=== PATIENT | female | born 1965 | race Caucasian/White ===

== ENCOUNTER 2017-04-06 13:37 | Emergency (ER) | payer OTHER ==
[~2017-04-06] VITALS: Ht 172.7 cm; Wt 63.5 kg
[~2017-04-06 13:37] MED LIST: ASPIR 8181 MG PO; ASPIRIN EC81 MG PO; AUGMENTIN 875-1 EACH PO; CIPROFLOXACIN500 MG PO; CLOPIDOGREL75 MG PO; COMBIVENT RESPIM4 GM; FLOVENT DISKU100 MCG IH; FLOVENT HFA12 GM; GLUCOPHAGE500 MG PO; HYDROCHLOROTHIA25 MG PO; IPRAT-ALBUT 0.5-3 ML INH; ISOSORBIDE MONO30 MG PO; LIPITOR40 MG PO; LOPRESSOR50 MG PO; MIRTAZAPINE15 MG PO; NITROSTAT0.4 MG SL; NORCO 5-325 TA1 EACH PO; OMEPRAZOLE20 MG PO; PREDNISONE20 MG PO; PROZAC10 MG PO; ULTRAM50 MG PO; VENTOLIN HFA18 GM INH; ZESTRIL40 MG PO; [UNRECOGNIZED DRUG - REMARK]
[2017-04-06] MEDS ORDERED: NORCO 5-325 TA1 EACH PO (14:00)
[2017-04-06] MEDS ORDERED: METHYLPREDNISOLO4 M1 PO (14:00)
[2017-04-06] MEDS ORDERED: ROBAXIN-750750 MG PO (14:00)
== END 2017-04-06 14:55 | disposition home or self-care (01) ==
LOC: ED 13:37
DX: M54.5 Low back pain (principal); E11.9 Type 2 diabetes mellitus without complications; K21.9 Gastro-esophageal reflux disease without esophagitis; I25.10 Atherosclerotic heart disease of native coronary artery without angina pectoris; J44.9 Chronic obstructive pulmonary disease, unspecified; I10 Essential (primary) hypertension; F32.9 Major depressive disorder, single episode, unspecified; F17.200 Nicotine dependence, unspecified, uncomplicated; Z88.8 Allergy status to other drugs, medicaments and biological substances; Z88.7 Allergy status to serum and vaccine; Z86.73 Personal history of transient ischemic attack (TIA), and cerebral infarction without residual deficits; Z79.899 Other long term (current) drug therapy; Z79.84 Long term (current) use of oral hypoglycemic drugs; Z79.82 Long term (current) use of aspirin
CPT/HCPCS: 96372; 99283; J1100

== ENCOUNTER 2017-04-23 19:02 | Emergency (ER) | payer OTHER ==
[~2017-04-23] VITALS: Ht 172.7 cm; Wt 65.8 kg
[~2017-04-23 19:02] MED LIST changes: +METHYLPREDNISOLO4 M1 PO; +ROBAXIN-750750 MG PO
[2017-04-23] MEDS ORDERED: TRAMADOL HCL50 MG PO (19:30)
== END 2017-04-23 19:54 | disposition home or self-care (01) ==
LOC: ED 19:02
DX: M79.604 Pain in right leg (principal); G89.29 Other chronic pain; G35 Multiple sclerosis; E11.9 Type 2 diabetes mellitus without complications; K21.9 Gastro-esophageal reflux disease without esophagitis; I25.10 Atherosclerotic heart disease of native coronary artery without angina pectoris; J44.9 Chronic obstructive pulmonary disease, unspecified; I10 Essential (primary) hypertension; F32.9 Major depressive disorder, single episode, unspecified; Z86.73 Personal history of transient ischemic attack (TIA), and cerebral infarction without residual deficits; Z87.891 Personal history of nicotine dependence; Z88.8 Allergy status to other drugs, medicaments and biological substances; Z88.7 Allergy status to serum and vaccine; Z79.899 Other long term (current) drug therapy; Z79.84 Long term (current) use of oral hypoglycemic drugs; Z79.82 Long term (current) use of aspirin
CPT/HCPCS: 99283

== ENCOUNTER 2017-07-05 09:00 | Emergency (ER) | payer OTHER ==
[~2017-07-05] VITALS: Ht 172.7 cm; Wt 63.5 kg
[~2017-07-05 09:00] MED LIST changes: +TRAMADOL HCL50 MG PO
[2017-07-05] MEDS ORDERED: METOPROLOL SUCC50 MG PO (09:49)
[2017-07-05] MEDS ORDERED: DILTIAZEM ER180 M2 PO (09:50)
[2017-07-05] MEDS ORDERED: ALPRAZOLAM0.5 MG PO (10:05)
--- NOTE | 2017-07-05 17:21 | EKG ---
[facility] [address] [facility] [place], [place] [address] Signed Sinus rhythm with fusion complexes Otherwise normal ECG No previous ECGs available Confirmed by HEIDI DAVILA MD ([id number]) on 07/05/2017 5:21:01 PM Electronically Signed By: HEIDI DAVILA MD 07/05/17 1721 PATIENT NAME: DESTINEE DARBY Electrocardiogram DATE OF : 65 PHYSICIAN: HEIDI DAVILA MD REPORT #: [id number] REPORT IS CONFIDENTIAL AND NOT TO BE RELEASED WITHOUT AUTHORIZATION
== END 2017-07-05 10:09 | disposition home or self-care (01) ==
LOC: ED 09:00
DX: R07.9 Chest pain, unspecified (principal); F41.9 Anxiety disorder, unspecified; E11.9 Type 2 diabetes mellitus without complications; K21.9 Gastro-esophageal reflux disease without esophagitis; J44.9 Chronic obstructive pulmonary disease, unspecified; I25.10 Atherosclerotic heart disease of native coronary artery without angina pectoris; I10 Essential (primary) hypertension; F32.9 Major depressive disorder, single episode, unspecified; Z87.891 Personal history of nicotine dependence; Z95.5 Presence of coronary angioplasty implant and graft; Z88.8 Allergy status to other drugs, medicaments and biological substances; Z79.899 Other long term (current) drug therapy; Z79.82 Long term (current) use of aspirin; Z79.84 Long term (current) use of oral hypoglycemic drugs
CPT/HCPCS: 71010; 80053; 84484; 85025; 93005; 93010; 99284; G0480

== ENCOUNTER 2017-09-18 07:21 | Emergency (ER) | payer OTHER ==
[~2017-09-18] VITALS: Ht 172.7 cm; Wt 63.5 kg
[~2017-09-18 07:21] MED LIST changes: +ALPRAZOLAM0.5 MG PO; +DILTIAZEM ER180 M2 PO; +METOPROLOL SUCC50 MG PO
[2017-09-18] MEDS ORDERED: NAPROSYN500 MG PO (10:02)
[2017-09-18] MEDS ORDERED: PROMETH-CODEIN 65 ML PO (10:02)
--- NOTE | 2017-09-18 23:50 | EKG ---
[facility] [address] [facility] [place] [address] Signed Sinus rhythm with occasional premature ventricular complexes Nonspecific ST and T wave abnormality Abnormal ECG When compared with ECG of 05-JUL-2017 09:10, fusion complexes are no longer present premature ventricular complexes are now present Non-specific change in ST segment in Lateral leads Nonspecific T wave abnormality now evident in Lateral leads Confirmed by TITA TILLMAN MD ([id number]) on 09/18/2017 11:49:58 PM Electronically Signed By: TITA TILLMAN MD 09/18/17 2350 PATIENT NAME: DESTINEE DARBY Electrocardiogram DATE OF : 65 PHYSICIAN: TITA TILLMAN MD REPORT #: [id number] REPORT IS CONFIDENTIAL AND NOT TO BE RELEASED WITHOUT AUTHORIZATION
== END 2017-09-18 10:33 | disposition home or self-care (01) ==
LOC: ED 07:21
DX: J10.1 Influenza due to other identified influenza virus with other respiratory manifestations (principal); J20.9 Acute bronchitis, unspecified; E11.9 Type 2 diabetes mellitus without complications; K21.9 Gastro-esophageal reflux disease without esophagitis; I25.10 Atherosclerotic heart disease of native coronary artery without angina pectoris; I10 Essential (primary) hypertension; F17.200 Nicotine dependence, unspecified, uncomplicated; Z88.8 Allergy status to other drugs, medicaments and biological substances; Z88.7 Allergy status to serum and vaccine; Z86.73 Personal history of transient ischemic attack (TIA), and cerebral infarction without residual deficits; Z79.84 Long term (current) use of oral hypoglycemic drugs; Z79.899 Other long term (current) drug therapy; Z79.82 Long term (current) use of aspirin
CPT/HCPCS: 71046; 80053; 81001; 83605; 84484; 85025; 87502; 93005; 93010; 94640; 96372; 96374; 96375; 99284; J1100; J1885; J2405; J7040

== ENCOUNTER 2023-05-19 19:26 | Emergency (ER) | payer OTHER ==
[~2023-05-19] VITALS: Ht 172.7 cm; Wt 72.6 kg
[~2023-05-19 19:26] MED LIST changes: +NAPROSYN500 MG PO; +PROMETH-CODEIN 65 ML PO
[2023-05-19 19:50] LABS: BASOPHILS 0.7 % (0-2); EOSINOPHILS 0.8 % (0-6); HEMATOCRIT 43.6 % (35.0-50.0); HEMOGLOBIN 14.9 g/dL (12.0-18.0); LYMPHOCYTES 21.5 % (24-44); MCH 29.6 (27-36); MCHC 34.2 g/dl (30-36); MCV 86.6 fl (81-99); MONOCYTES 6.3 % (0-12); NEUTROPHILS 70.7 % (39-80); PLATELET COUNT 261 K/uL (140-440); RBC 5.03 M/ul (4.3-5.7); RDW 13.3 (10.5-15.0)
[2023-05-19 20:10] LABS: ALBUMIN 3.9 g/dL (3.4-5.0); ALBUMIN/GLOBULIN RATIO 0.85 (1.1-2.4); BILIRUBIN, TOTAL 0.4 ng/dL (0.2-1.0); BUN/CREATININE RATIO 16.36 (6.0-28.6); CALCIUM 9.4 mg/dL (8.5-10.1); CREATININE, SERUM 0.55 mg/dL (0.55-1.02); MAGNESIUM 1.5 mg/dL (1.8-2.4); PROTEIN, TOTAL 8.5 g/dL (6.4-8.2)
[2023-05-19 20:12] LABS: INR 0.98 (0.80-1.30); PROTIME 12.5 Sec (11.2-14.2)
[2023-05-19 20:55] LABS: INFLUENZA B NAA NEGATIVE (NEGATIVE); RESPIRATORY SYNCYTIAL VIR NAA NEGATIVE (NEGATIVE)
[2023-05-19 23:09] VITALS: BP 157/65
--- NOTE | 2023-05-20 17:10 | EKG ---
[facility] [address] [facility] [place] [address] Signed Sinus rhythm with short HI Prolonged QT Abnormal ECG When compared with ECG of 18-SEP-2017 07:38, premature ventricular complexes are no longer present Nonspecific T wave abnormality no longer evident in Lateral leads Confirmed by JAYESH HICKS MD ([id number]) on 05/20/2023 5:10:00 PM Electronically Signed By: JAYESH HICKS 05/20/23 1710 PATIENT NAME: AMI DARBYNaya OCHOA Electrocardiogram DATE OF : 65 PHYSICIAN: JAYESH HICKS REPORT #: [id number] REPORT IS CONFIDENTIAL AND NOT TO BE RELEASED WITHOUT AUTHORIZATION
== END 2023-05-19 23:10 | disposition home or self-care (01) ==
LOC: ED 19:26
PROVIDERS: Family Medicine
DX: J42 Unspecified chronic bronchitis (principal); F17.200 Nicotine dependence, unspecified, uncomplicated; I10 Essential (primary) hypertension; E11.9 Type 2 diabetes mellitus without complications; Z20.822 Contact with and (suspected) exposure to COVID-19; Z88.8 Allergy status to other drugs, medicaments and biological substances; Z88.7 Allergy status to serum and vaccine; Z79.51 Long term (current) use of inhaled steroids; Z79.899 Other long term (current) drug therapy; Z79.82 Long term (current) use of aspirin; Z79.84 Long term (current) use of oral hypoglycemic drugs; Z91.81 History of falling
CPT/HCPCS: 36415; 71045; 71260; 72100; 80053; 83735; 83880; 84484; 85025; 85379; 85610; 87502; 93005; 93010; 94664; 99285-25; A9270; C9803; J1815; J2270; J3475; Q9967; U0002

== ENCOUNTER 2023-11-08 09:26 | Emergency (ER) | payer OTHER ==
[~2023-11-08] VITALS: Ht 172.7 cm; Wt 72.6 kg
[2023-11-08 09:44] LABS: EOSINOPHILS 0.8 % (0-6); HEMATOCRIT 44.2 % (35.0-50.0); HEMOGLOBIN 14.9 g/dL (12.0-18.0); LYMPHOCYTES 26.3 % (24-44); MCH 29.4 (27-36); MCHC 33.8 g/dl (30-36); MCV 87.2 fl (81-99); MONOCYTES 4.1 % (0-12); NEUTROPHILS 67.8 % (39-80); PLATELET COUNT 248 K/uL (140-440); RBC 5.07 M/ul (4.3-5.7); RDW 13.1 (10.5-15.0)
[2023-11-08 10:05] LABS: ALBUMIN 3.5 g/dL (3.4-5.0); ALBUMIN/GLOBULIN RATIO 0.78 (1.1-2.4); ALKALINE PHOSPHATASE 75 U/L (46-116); ALT (SGPT) 27 U/L (14-59); ANION GAP 9.9 (7-21); AST (SGOT) 19 U/L (15-37); BILIRUBIN, TOTAL 0.4 ng/dL (0.2-1.0); BUN/CREATININE RATIO 16.94 (6.0-28.6); CARBON DIOXIDE 31 mmol/L (21-32); CHLORIDE 98 mmol/L (98-107); CREATININE, SERUM 0.59 mg/dL (0.55-1.02); GLOMERULAR FILTRATION RATE,EST 104 mL/min (>60); POTASSIUM 3.9 mmol/L (3.5-5.1); UREA NITROGEN 10 mg/dL (7-18)
[2023-11-08] MEDS ORDERED: CLOPIDOGREL75 MG PO (10:05)
[2023-11-08 10:06] LABS: PROTIME 12.8 Sec (11.2-14.2)
[2023-11-08 10:08] LABS: PARTIAL THROMBOPLASTIN TIME 26.4 Sec (22.9-41.3)
[2023-11-08 10:11] LABS: BILIRUBIN, URINE NEGATIVE (negative); BLOOD/HGB, URINE NEGATIVE (Negative); KETONE, URINE NEGATIVE (Negative); LEUK ESTERASE, URINE NEGATIVE (negative); NITRITE, URINE NEGATIVE (negative)
[2023-11-08 10:13] LABS: ALCOHOL, MEDICAL <3 ng/dL (<3)
[2023-11-08 10:35] LABS: AMPHETAMINES, URINE POSITIVE (NEGATIVE); BARBITURATES, URINE NEGATIVE (NEGATIVE); BENZODIAZEPINE, URINE NEGATIVE (NEGATIVE); BUPRENORPHINE, URINE NEGATIVE (NEGATIVE); CANNABINOID, URINE NEGATIVE (NEGATIVE); COCAINE, URINE NEGATIVE (NEGATIVE); ECSTASY, URINE NEGATIVE (NEGATIVE); FENTANYL, URINE NEGATIVE (NEGATIVE); METHADONE, URINE NEGATIVE (NEGATIVE); OPIATES, URINE NEGATIVE (NEGATIVE); OXYCODONE, URINE NEGATIVE (NEGATIVE); PHENCYCLIDINE, URINE NEGATIVE (NEGATIVE)
[2023-11-08 11:27] LABS: INFLUENZA B NAA NEGATIVE (NEGATIVE); RESPIRATORY SYNCYTIAL VIR NAA NEGATIVE (NEGATIVE)
[2023-11-08 11:33] VITALS: BP 105/92
--- NOTE | 2023-11-08 21:15 | EKG ---
[facility] [address] [facility] [place] [address] Signed Normal sinus rhythm Normal ECG When compared with ECG of 19-MAY-2023 19:29, No significant change was found Confirmed by Raysa Saez MD () on 11/08/2023 9:15:31 PM Electronically Signed By: RAYSA SAEZ MD 11/08/23 2115 PATIENT NAME: DESTINEE DARBY Electrocardiogram DATE OF : 65 PHYSICIAN: RAYSA SAEZ MD REPORT #: [id number] REPORT IS CONFIDENTIAL AND NOT TO BE RELEASED WITHOUT AUTHORIZATION
== END 2023-11-08 11:36 | disposition home or self-care (01) ==
LOC: ED 09:26
PROVIDERS: Emergency Medicine
DX: F15.10 Other stimulant abuse, uncomplicated (principal); I65.22 Occlusion and stenosis of left carotid artery; I67.1 Cerebral aneurysm, nonruptured; E11.9 Type 2 diabetes mellitus without complications; K21.9 Gastro-esophageal reflux disease without esophagitis; I25.10 Atherosclerotic heart disease of native coronary artery without angina pectoris; J44.9 Chronic obstructive pulmonary disease, unspecified; G35 Multiple sclerosis; I10 Essential (primary) hypertension; F32.A Depression, unspecified; F17.200 Nicotine dependence, unspecified, uncomplicated; Z88.8 Allergy status to other drugs, medicaments and biological substances; Z88.7 Allergy status to serum and vaccine; Z79.51 Long term (current) use of inhaled steroids; Z79.02 Long term (current) use of antithrombotics/antiplatelets; Z79.82 Long term (current) use of aspirin; Z79.899 Other long term (current) drug therapy; Z79.84 Long term (current) use of oral hypoglycemic drugs
CPT/HCPCS: 36415; 70450; 70496; 70498; 71045; 80053; 80307; 81003; 84484; 85025; 85610; 85730; 87502; 93005; 93010; 99284-25; G0480; Q9967; U0002

== ENCOUNTER 2024-08-01 17:24 | Emergency (ER) | payer OTHER ==
[~2024-08-01] VITALS: Ht 172.7 cm; Wt 81.0 kg
[2024-08-01 18:42] LABS: BASOPHILS 1.9 % (0-2); EOSINOPHILS 3.2 % (0-6); HEMATOCRIT 46.2 % (35.0-50.0); HEMOGLOBIN 15.4 g/dL (12.0-18.0); LYMPHOCYTES 16.9 % (24-44); MCH 29.2 (27-36); MCHC 33.3 g/dl (30-36); MCV 87.9 fl (81-99); MONOCYTES 4.2 % (0-12); NEUTROPHILS 73.8 % (39-80); PLATELET COUNT 333 K/uL (140-440); RBC 5.25 M/ul (4.3-5.7); RDW 13.4 (10.5-15.0)
[2024-08-01 18:57] LABS: ALBUMIN 3.2 g/dL (3.4-5.0); ALBUMIN/GLOBULIN RATIO 0.65 (1.1-2.4); ANION GAP 12.5 (7-21); BILIRUBIN, TOTAL 0.3 ng/dL (0.2-1.0); BUN/CREATININE RATIO 6.66 (6.0-28.6); CALCIUM 9.3 mg/dL (8.5-10.1); CREATININE, SERUM 0.75 mg/dL (0.55-1.02); POTASSIUM 3.5 mmol/L (3.5-5.1); PROTEIN, TOTAL 8.1 g/dL (6.4-8.2)
[2024-08-01] MEDS ORDERED: CEPHALEXIN500 M1 PO (19:53)
[2024-08-01] MEDS ORDERED: CEFTRIAXONE/SODIUM CHLORIDE 2 GM/100 ML PIGGYBACK IV ONE (20:00)
[2024-08-01] MEDS ORDERED: ACETAMINOPHEN 500 MG TAB PO ONE (20:00)
[2024-08-01 21:05] VITALS: BP 183/96
== END 2024-08-01 21:05 | disposition home or self-care (01) ==
LOC: ED 17:24
PROVIDERS: Emergency Medicine
DX: L03.116 Cellulitis of left lower limb (principal); E11.9 Type 2 diabetes mellitus without complications; I25.10 Atherosclerotic heart disease of native coronary artery without angina pectoris; G35 Multiple sclerosis; I10 Essential (primary) hypertension; F17.200 Nicotine dependence, unspecified, uncomplicated; Z88.8 Allergy status to other drugs, medicaments and biological substances; Z88.6 Allergy status to analgesic agent; Z88.7 Allergy status to serum and vaccine; Z79.899 Other long term (current) drug therapy; Z79.82 Long term (current) use of aspirin; Z79.84 Long term (current) use of oral hypoglycemic drugs; Z95.5 Presence of coronary angioplasty implant and graft
CPT/HCPCS: 36415; 80053; 85025; 93925; 93971; 96365; 99284-25; A9270; J0696

== ENCOUNTER 2024-08-29 15:04 | Emergency (ER) | payer OTHER ==
[~2024-08-29] VITALS: Ht 172.7 cm; Wt 72.4 kg
[~2024-08-29 15:04] MED LIST changes: +CEPHALEXIN500 M1 PO
[2024-08-29] MEDS ORDERED: MUPIROCIN 22 GM TUBE TOP ONE (16:15)
[2024-08-29 17:08] VITALS: BP 163/87
== END 2024-08-29 17:07 | disposition home or self-care (01) ==
LOC: ED 15:04
DX: Z48.00 Encounter for change or removal of nonsurgical wound dressing (principal); E11.9 Type 2 diabetes mellitus without complications; I25.10 Atherosclerotic heart disease of native coronary artery without angina pectoris; J44.9 Chronic obstructive pulmonary disease, unspecified; I10 Essential (primary) hypertension; G35 Multiple sclerosis; K21.9 Gastro-esophageal reflux disease without esophagitis; F17.200 Nicotine dependence, unspecified, uncomplicated; Z95.5 Presence of coronary angioplasty implant and graft; Z88.8 Allergy status to other drugs, medicaments and biological substances; Z88.7 Allergy status to serum and vaccine; Z79.899 Other long term (current) drug therapy; Z79.82 Long term (current) use of aspirin; Z79.84 Long term (current) use of oral hypoglycemic drugs
CPT/HCPCS: 99282

== ENCOUNTER 2024-09-21 07:34 | Inpatient (IN) | payer OTHER ==
[2024-09-21] VITALS (17 sets, daily range): BP systolic 105–161; BP diastolic 61–118
[~2024-09-21] VITALS: Ht 172.7 cm; Wt 66.4 kg
[~2024-09-21 07:34] MED LIST changes: -COMBIVENT RESPIM4 GM; +COMBIVENT RESPIM4 GM INH
[2024-09-21] MEDS ORDERED: SODIUM CHLORIDE 0.9% 1,000 ML IV PRN (08:00)
[2024-09-21 08:15] LABS: PH, VENOUS 7.307 (7.31-7.41)
[2024-09-21 08:22] LABS: BASOPHILS 0.1 % (0-2); HEMATOCRIT 53.6 % (35.0-50.0); HEMOGLOBIN 16.8 g/dL (12.0-18.0); LYMPHOCYTES 4.2 % (24-44); MCH 28.4 (27-36); MCHC 31.4 g/dl (30-36); MCV 90.5 fl (81-99); MONOCYTES 8.7 % (0-12); PLATELET COUNT 353 K/uL (140-440); RBC 5.93 M/ul (4.3-5.7); RDW 15.1 (10.5-15.0)
[2024-09-21 08:28] LABS: INR 1.21 (0.80-1.30); PROTIME 15.3 Sec (11.2-14.2)
[2024-09-21 08:40] LABS: ALBUMIN 2.8 g/dL (3.4-5.0); ALBUMIN/GLOBULIN RATIO 0.51 (1.1-2.4); ANION GAP 28.1 (7-21); BILIRUBIN, TOTAL 0.5 ng/dL (0.2-1.0); BUN/CREATININE RATIO 24.18 (6.0-28.6); CREATININE, SERUM 2.15 mg/dL (0.55-1.02); POTASSIUM 3.1 mmol/L (3.5-5.1); PROTEIN, TOTAL 8.3 g/dL (6.4-8.2)
[2024-09-21] MEDS ORDERED: INSULIN REGULAR IN 0.9 % NACL 100 ML IV SCH (08:45)
[2024-09-21] MEDS ORDERED: LACTATED RINGER'S 1,000 ML IV ONE (08:45)
[2024-09-21] MEDS ORDERED: DEXTROSE 5% - NACL 0.45% 1,000 ML IV SCH ×2 (09:00→11:45)
[2024-09-21] MEDS ORDERED: GLUCAGON,HUMAN RECOMBINANT 1 MG/ML VIAL SUB-Q PRN ×2 (09:00→11:45)
[2024-09-21] MEDS ORDERED: DEXTROSE 50% 50 ML SYR IV PRN ×4 (09:00→11:45)
[2024-09-21] MEDS ORDERED: IBLOOD GLUCOSE TEST STRIP 1 EA TEST XX PRN ×2 (09:00→11:45)
[2024-09-21] MEDS ORDERED: IBLOOD GLUCOSE TEST STRIP 1 EA TEST VI SCH ×2 (09:00→12:00)
[2024-09-21] MEDS ORDERED: DEXTROSE 5% 1,000 ML IV PRN ×2 (09:00→11:45)
[2024-09-21] MEDS ORDERED: AZITHROMYCIN/DEXTROSE 500 MG/250 ML PIGGYBACK IV ONE (09:15)
[2024-09-21] MEDS ORDERED: CEFTRIAXONE/SODIUM CHLORIDE 1 GM/100 ML PIGGYBACK IV ONE ×2 (09:15→11:45)
[2024-09-21 09:59] LABS: BILIRUBIN, URINE NEGATIVE (negative); BLOOD/HGB, URINE LARGE (Negative); KETONE, URINE SMALL (Negative); LEUK ESTERASE, URINE SMALL (negative); NITRITE, URINE POSITIVE (negative); PH, URINE 5.5 (5-7)
[2024-09-21] MEDS ORDERED: LIDOCAINE 2% VISCOUS 6 ML SYR TOP ONE (10:00)
[2024-09-21 10:06] LABS: EPITHELIAL CELLS, URINE SQUAMOUS 1+ /lpf (0-1+); RED BLOOD CELLS, URINE 21-40 /hpf (0-5); WHITE BLOOD CELLS, URINE >50 /HPF (0-5)
[2024-09-21 10:07] LABS: BACTERIA, URINE 2+ /hpf (negative); CASTS, URINE NONE SEEN \\lpf; COLLECTION TYPE, URINE CLEAN CATCH; CRYSTALS, URINE NONE SEEN (0-1+); REFLEX CULTURE, URINE Yes (No)
[2024-09-21 10:22] LABS: AMPHETAMINES, URINE NEGATIVE (NEGATIVE); BARBITURATES, URINE NEGATIVE (NEGATIVE); BENZODIAZEPINE, URINE NEGATIVE (NEGATIVE); BUPRENORPHINE, URINE NEGATIVE (NEGATIVE); CANNABINOID, URINE NEGATIVE (NEGATIVE); COCAINE, URINE NEGATIVE (NEGATIVE); ECSTASY, URINE NEGATIVE (NEGATIVE); FENTANYL, URINE NEGATIVE (NEGATIVE); METHADONE, URINE NEGATIVE (NEGATIVE); OPIATES, URINE NEGATIVE (NEGATIVE); OXYCODONE, URINE NEGATIVE (NEGATIVE); PHENCYCLIDINE, URINE NEGATIVE (NEGATIVE)
[2024-09-21 10:51] LABS: INFLUENZA B NAA NEGATIVE (NEGATIVE); RESPIRATORY SYNCYTIAL VIR NAA NEGATIVE (NEGATIVE)
[2024-09-21] MEDS ORDERED: LACTATED RINGER'S 1,000 ML IV PRN (11:30)
[2024-09-21] MEDS ORDERED: POTASSIUM REPLACEMENT PROTOCOL ORAL/IV PO/IV SCH (11:37)
[2024-09-21] MEDS ORDERED: ELECTROLTYTE REPLACEMEMT CCU 1 EACH EA PO/IV SCH (11:37)
[2024-09-21] MEDS ORDERED: MAGNESIUM REPLACEMENT PROTOCOL ORAL/IV PO/IV SCH (11:38)
[2024-09-21] MEDS ORDERED: LACTATED RINGER'S 1,000 ML IV SCH ×2 (11:45→13:00)
[2024-09-21] MEDS ORDERED: ACETAMINOPHEN 325 MG TAB PO PRN (11:45)
[2024-09-21] MEDS ORDERED: Insulin Regular 100 Unit/100 Ml Bag IV SCH (11:45)
[2024-09-21] MEDS ORDERED: ondansetron HCL 4 MG/2 ML VIAL IV PRN (11:45)
[2024-09-21] MEDS ORDERED: PHARMACY RENAL DOSE ADJUSTMENT 1 DOSE MISC PO SCH (12:00)
--- NOTE | 2024-09-21 12:10 | NUR ---
PT ARRIVES TO CCU ROOM 129, ADMITTED FOR DKA/STROKE/SEPSIS. PT ARRIVES OBTUNDED, DOES RESPOND MINIMALLY TO LOUD CALLING OF HER NAME- ATTEMPTS TO OPEN EYES AND MOANS A LITTLE. PT ARRIVES WITH INSULIN DRIP INFUSING AT 8.8 UNITS/HR AND IVF INFUSING AT 125ML/HR. WAITING ON POTASSIUM DRIP FROM PHARMACY. PTS RESPIRATIONS ARE VERY SHALLOW, RR 40-45. LUNG SOUNDS VERY DECREASED THROUGHOUT. HR 140. BP WNL. PT WAS ROLLED ONTO HER SIDE, OPEN SORE ON COCCYX, PICTURE TAKEN AND FOAM DRESSING APPLIED. AXILLARY TEMP 103, RECTAL SUPPOSITORY WAS GIVEN. MD AND RT CALLED TO BEDSIDE TO ASSESS PT. BIPAP WAS PLACED 08/14, 40%. THIS RN WILL BE STAYING 1:1 AT THIS TIME WHILE PT IS ON BIPAP.
[2024-09-21] MEDS ORDERED: ALBUTEROL SULFATE 0.083% 3 ML VIAL INH PRN (12:45)
[2024-09-21] MEDS ORDERED: ACETAMINOPHEN 650 MG SUPP PR ONE (13:00)
[2024-09-21] MEDS ORDERED: POTASSIUM CHLORIDE 40 MEQ,LIDOCAINE HCL 1% 40 MG in DEXTROSE 5% 250 ML IV ONE (13:00)
[2024-09-21] MEDS ORDERED: FLUTICASONE-SA1 EAC4 INH (13:47)
[2024-09-21] MEDS ORDERED: ALBUTEROL/IPRATROPIUM 3 ML NEB INH SCH (14:00)
--- NOTE | 2024-09-21 14:19 | NUR ---
HR HAS COME DOWN, NOW 120'S. TEMP 98.5 AXILLARY. PT CONT TO WEAR BIPAP, IS STARTING TO WAKE UP NOW, OCC PULLING AT MASK AND IV LINES.
[2024-09-21 14:22] LABS: ANION GAP 11.8 (7-21); BUN/CREATININE RATIO 29.41 (6.0-28.6); CREATININE, SERUM 1.36 mg/dL (0.55-1.02); POTASSIUM 2.8 mmol/L (3.5-5.1)
[2024-09-21 14:28] LABS: PH, VENOUS 7.456 (7.31-7.41)
[2024-09-21] MEDS ORDERED: DEXTROSE 5% 1,000 ML IV SCH (15:15)
[2024-09-21] MEDS ORDERED: NICOTINE 21 MG/24 HR 1 EA TDSY TD PRN (17:15)
--- NOTE | 2024-09-21 18:00 | NUR ---
BIPAP REMOVED PT WAS BECOMING INCREASINGLY ANNOYED WITH IT. PLACED PT ON 2L/O2, SPO2 98%. RESP RATE DOWN TO 20'S, LAB IN TO DRAW.
[2024-09-21 18:02] LABS: PH, VENOUS 7.495 (7.31-7.41)
[2024-09-21 18:15] LABS: ANION GAP 10.8 (7-21); BUN/CREATININE RATIO 32.07 (6.0-28.6); CALCIUM 8.4 mg/dL (8.5-10.1); CREATININE, SERUM 1.06 mg/dL (0.55-1.02); POTASSIUM 2.8 mmol/L (3.5-5.1)
[2024-09-21] MEDS ORDERED: POTASSIUM CHLORIDE 10 MEQ/100 ML BAG IV SCH ×3 (18:30→23:00)
[2024-09-21] MEDS ORDERED: POTASSIUM CHLORIDE 10 MEQ/100 ML BAG IV ONE (18:30)
[2024-09-21] MEDS ORDERED: BUDESONIDE 0.5 MG/2 ML VIAL INH SCH (20:00)
--- NOTE | 2024-09-21 20:00 | NUR ---
PATIENT CALLED REQUESTING ASSISTANCE ONTO BEDSIDE COMMODE. ASSISTSED BY GAVIN MOYA. NITA ASSISTED PATIENT TO AND FROM BEDSIDE COMMODE. PATIENT TOLERATED ACTIVITY
--- NOTE | 2024-09-21 20:00 | NUR ---
NURSE PERFORMED ASSESSMENT; VITAL SIGNS TAKEN; BLOOD GLUCOSE TAKEN; PERICARE AND JACKSON CATH CARE PERFORMED; ORAL CARE PERFORMED; ASSISTED PATIENT WITH REPOSITIONING IN BED; CALL LIGHT AND BEDSIDE TABLE WITHIN REACH. COMMUNICATED WITH PHYSICIAN REGARDING PATIENT'S ELEVATED TEMPERATURE. NEW ORDERS RECEIVED FROM PHYSICIAN. ORDERS NOTED AND CARRIED OUT.
--- NOTE | 2024-09-21 20:26 | NUR ---
pt failed bed side swallow by coughing. pt and family notified.
[2024-09-21] MEDS ORDERED: ACETAMINOPHEN 650 MG SUPP PR PRN (21:00)
[2024-09-21 22:00] LABS: PH, VENOUS 7.473 (7.31-7.41)
[2024-09-21 22:15] LABS: BUN/CREATININE RATIO 31.11 (6.0-28.6); CALCIUM 8.8 mg/dL (8.5-10.1); CREATININE, SERUM 0.9 mg/dL (0.55-1.02)
--- NOTE | 2024-09-21 22:54 | EKG ---
[facility] [address] [place] [address] Signed Sinus tachycardia Right atrial enlargement Marked ST abnormality, possible inferior subendocardial injury Abnormal ECG When compared with ECG of 08-NOV-2023 10:57, Vent. rate has increased BY [address] now depressed in Inferior leads ST now depressed in Anterolateral leads T wave inversion now evident in Inferior leads T wave inversion now evident in Lateral leads Confirmed by Raysa Saez MD () on 09/21/2024 10:54:09 PM Electronically Signed By: RAYSA SAEZ MD 09/21/24 2254 PATIENT NAME: DESTINEE DARBY Electrocardiogram DATE OF : 65 PHYSICIAN: RAYSA SAEZ MD REPORT #: [id number] REPORT IS CONFIDENTIAL AND NOT TO BE RELEASED WITHOUT AUTHORIZATION
[2024-09-22] VITALS (23 sets, daily range): BP systolic 105–153; BP diastolic 59–124
--- NOTE | 2024-09-22 | NUR ---
PATIENT SLEEPING; EASILY AWAKENED; PATIENT REMAINS CONFUSED; ALERT TO SELF AND PLACE; DISORIENTED TO TIME AND SITUATION; ASSESSMENT COMPLETED; ASSISTED PATIENT WITH REPOSITIONING IN BED; JACKSON CATHETER DRAINING CLEAR YELLOW URINE; BEDSIDE TABLE AND CALL LIGHT WITHIN REACH.
--- NOTE | 2024-09-22 01:30 | NUR ---
PATIENT UNKNOWINGLY PULLED OUT IV TO RIGHT WRIST. CATHETER INTACT. NO COMPLICATIONS NOTED. DRESSING APPLIED.
--- NOTE | 2024-09-22 04:00 | NUR ---
PATIENT SLEEPING; EASILY AWAKENED; PATIENT ABLE TO FOLLOW DIRECTIONS; ASSESSMENT COMPLETED; VITAL SIGNS TAKEN; PATIENT'S SPEECH CONTINUES TO BE SLURRED; PATIENT NODS HER HEAD YES AND NO TO ANSWER QUESTIONS; ASSISTED PATIENT TO REPOSITION. CALL LIGHT AND BEDSIDE TABLE WITHIN REACH.
[2024-09-22 05:10] LABS: BASOPHILS 0.4 % (0-2); EOSINOPHILS 0.1 % (0-6); HEMATOCRIT 43.1 % (35.0-50.0); HEMOGLOBIN 14.1 g/dL (12.0-18.0); MCH 28.3 (27-36); MCHC 32.8 g/dl (30-36); MCV 86.2 fl (81-99); NEUTROPHILS 80.5 % (39-80); PLATELET COUNT 190 K/uL (140-440); RDW 14.3 (10.5-15.0)
[2024-09-22 05:25] LABS: ALBUMIN/GLOBULIN RATIO 0.49 (1.1-2.4); BILIRUBIN, DIRECT 0.1 mg/dL (0.0-0.2); BILIRUBIN, INDIRECT 0.3 (0.1-0.7); BILIRUBIN, TOTAL 0.4 ng/dL (0.2-1.0); CALCIUM 8.6 mg/dL (8.5-10.1); CREATININE, SERUM 0.75 mg/dL (0.55-1.02); PROTEIN, TOTAL 6.1 g/dL (6.4-8.2)
[2024-09-22 05:39] LABS: CHOLESTEROL/HDL RATIO 4.9
[2024-09-22 05:55] LABS: MAGNESIUM 1.6 mg/dL (1.8-2.4); PHOSPHORUS, INORGANIC 1.9 mg/dL (2.5-4.9)
--- NOTE | 2024-09-22 06:00 | NUR ---
PATIENT REQUESTED TO HAVE A DRINK OF WATER. NURSE PERFORMED BEDSIDE SWALLOW. PATIENT PASSED BEDSIDE SWALLOW TEST. PATIENT ABLE TO DRINK SMALL SIPS OF WATER WITHOUT COUGHING OR CHOKING. NURSE CALLED LAB RESULTS TO DR. MARIE. NURSE REPORTED K-3, MG-1.6, [id number], AST-169, ALT-77. DR. MARIE ADVISED THAT HE WOULD ENTER ORDERS IN THE PATIENT'S CHART MOMENTARILY.
--- NOTE | 2024-09-22 07:30 | NUR ---
REPORT RECEIVED FROM LARS ALONSO. ELEMENTARY TEACHER IN DOING ECHOCARDIOGRAM.
--- NOTE | 2024-09-22 08:17 | NUR ---
RT IN WITH PT DOING NEB TX
[2024-09-22] MEDS ORDERED: AZITHROMYCIN 500 MG in DEXTROSE 5% 250 ML IV SCH (09:00)
[2024-09-22] MEDS ORDERED: POTASSIUM PHOSPHATE 30 MMOL in DEXTROSE 5% 500 ML IV ONE (09:00)
[2024-09-22] MEDS ORDERED: CEFTRIAXONE/SODIUM CHLORIDE 2 GM/100 ML PIGGYBACK IV SCH (09:00)
[2024-09-22] MEDS ORDERED: MAGNESIUM SULFATE 2 GM/50 ML BAG IV SCH (09:00)
--- NOTE | 2024-09-22 09:30 | NUR ---
PT UP TO CHAIR WITH PHYSICAL THERAPY, CHAIR ALARM IN PLACE.
[2024-09-22 10:08] LABS: PH, VENOUS 7.466 (7.31-7.41)
[2024-09-22 10:20] LABS: ANION GAP 9.8 (7-21); BUN/CREATININE RATIO 24.61 (6.0-28.6); CALCIUM 8.5 mg/dL (8.5-10.1); CREATININE, SERUM 0.65 mg/dL (0.55-1.02); POTASSIUM 2.8 mmol/L (3.5-5.1)
--- NOTE | 2024-09-22 11:42 | NUR ---
RECEIVED POSITIVE BLOOD CULTURES FROM LAB, CALL TO DR SAEZ TO UPDATE HIM ON RESULTS, NO NEW ORDERS AT THIS TIME.
--- NOTE | 2024-09-22 14:12 | NUR ---
RT IN TO DO NEB TX. PT REMAINS SITTING UP IN CHAIR.
[2024-09-22 14:20] LABS: ANION GAP 8.1 (7-21); CALCIUM 8.2 mg/dL (8.5-10.1); CREATININE, SERUM 0.64 mg/dL (0.55-1.02); POTASSIUM 3.1 mmol/L (3.5-5.1)
--- NOTE | 2024-09-22 15:15 | NUR ---
IN TO SEE PT, ASKING QUESTIONS REGARDING DIABETIC DIET, EDUCATION PROVIDED, WILL NEED FOLLOW UP.
[2024-09-22] MEDS ORDERED: POTASSIUM CHLORIDE 10 MEQ TABCR PO ONE (15:30)
[2024-09-22] MEDS ORDERED: MAGNESIUM SULFATE 50 ML IV ONE (15:44)
--- NOTE | 2024-09-22 15:50 | NUR ---
MED REC COMPLETE
--- NOTE | 2024-09-22 16:23 | NUR ---
PT ASSISTED BACK TO BED, HEAVY ASSIST AND FWW. NOT MOVING LEGS WELL, ATTEMPTED TO WALK USING WALKER BUT PT UNABLE TO, HAD TO THEN PIVOT FROM CHAIR TO BED. PT POSITIONED ONTO RIGHT SIDE. WOUND ON COCCYX ASSESSED, LOOKS UNCHANGED FROM YESTERDAY. PT DENIES NEEDS AT THIS TIME, IN ROOM.
[2024-09-22] MEDS ORDERED: IBLOOD GLUCOSE TEST STRIP 1 EA TEST XX PRN (18:00)
[2024-09-22] MEDS ORDERED: DEXTROSE 50% 50 ML SYR IV PRN ×2 (18:00)
[2024-09-22] MEDS ORDERED: LACTATED RINGER'S 1,000 ML IV SCH (18:00)
[2024-09-22] MEDS ORDERED: GLUCAGON,HUMAN RECOMBINANT 1 MG/ML VIAL SUB-Q PRN (18:00)
[2024-09-22] MEDS ORDERED: DEXTROSE 5% 1,000 ML IV PRN (18:00)
[2024-09-22 18:17] LABS: ANION GAP 9.2 (7-21); BUN/CREATININE RATIO 21.31 (6.0-28.6); CALCIUM 8.3 mg/dL (8.5-10.1); CREATININE, SERUM 0.61 mg/dL (0.55-1.02); POTASSIUM 3.2 mmol/L (3.5-5.1)
--- NOTE | 2024-09-22 20:00 | NUR ---
PATIENT IN BED. AWAKE. VITAL SIGNS TAKEN. ASSESSMENT COMPLETED. CALL LIGHT AND BEDSIDE WITHIN REACH. PATIENT DENIED HAVING ANY PAIN OR DISCOMFORT AT THIS TIME.
[2024-09-22] MEDS ORDERED: IBLOOD GLUCOSE TEST STRIP 1 EA TEST VI SCH (21:00)
[2024-09-22] MEDS ORDERED: INSULIN LISPRO 100 UNIT/ML ML SUB-Q SCH (21:00)
--- NOTE | 2024-09-22 21:00 | NUR ---
NURSE ADMINISTERED PATIENT'S MEDICATION ORDERED. NURSE PERFORMED NAV AND CATHETER CARE. NURSE ASSISTED PATIENT WITH ORAL CARE AND HELPED PATIENT PREPARE FOR BEDTIME. PATIENT DENIED HAVING ANY PAIN OR DISCOMFORT AT THIS TIME. CALL LIGHT AND BEDSIDE TABLE WITHIN REACH.
[2024-09-23] VITALS (18 sets, daily range): BP systolic 101–170; BP diastolic 62–87
--- NOTE | 2024-09-23 | NUR ---
PATIENT IN BED; NURSE COMPLETED ASSESSMENT AND OBTAINED VITAL SIGNS. VITAL SIGNS WNL. PATIENT DENIED HAVING PAIN AT THIS TIME. CALL LIGHT AND BEDSIDE TABLE WITHIN REACH.
--- NOTE | 2024-09-23 01:00 | NUR ---
PATIENT AWAKE IN BED. PATIENT CALLED OUT TO NURSE. PATIENT'S SPEECH SLURRED. PATIENT VERBALIZED NEED TO HAVE A BOWEL MOVEMENT. NURSE ASSISTED PATIENT TO BEDSIDE COMMODE WITH USE OF FRONT WHEEL WALKER. PATIENT HAD BOWEL MOVEMENT. NURSE PROVIDED NAV CARE AND JACKSON CATH CARE. NURSE ASSISTED PATIENT BACK TO BED. PATIENT TOLERATED ACTIVITY. PATIENT'S OXYGEN SATURATION 90-92%. NURSE ADVISED PATIENT TO USE CALL LIGHT TO ASK FOR ASSISTANCE. CALL LIGHT AND BEDSIDE TABLE WITHIN REACH.
--- NOTE | 2024-09-23 02:30 | NUR ---
PATIENT YELLED OUT ALOUD. NURSE UNABLE TO MAKE OUT PATIENT'S STATEMENT. NURSE AT BEDSIDE. PATIENT'S SPEECH GARBLED AND SLURRED. NURSE ASKED IF PATIENT HAD TO USE THE BEDSIDE COMMODE. PATIENT ANSWERED "YES". NURSE ASSISTED PATIENT TO BEDSIDE COMMODE WITH USE OF FRONT WHEEL WALKER. PATIENT'S GAIT UNSTEADY. PATIENT HAD SMALL LOOSE BOWEL MOVEMENT. NURSE PROVIDED NAV & JACKSON CATH CARE. NURSE ASSISTED PATIENT BACK TO BED. NURSE ADVISED PATIENT TO USE CALL LIGHT AND DEMONSTRATED USE OF CALL LIGHT. PATIENT PERFORMED RETURN DEMONSTRATION ON USE OF CALL LIGHT. PATIENT GRIMACED WHILE REPOSITIONING IN BED. NURSE OFFERED TYLENOL. PATIENT AGREED TO HAVE TYLENOL FOR GENERALIZED PAIN. NURSE ADMINISTERED TYLENOL ORDERED.
[2024-09-23 06:55] LABS: BASOPHILS 0.9 % (0-2); EOSINOPHILS 0.3 % (0-6); HEMATOCRIT 41.2 % (35.0-50.0); HEMOGLOBIN 13.7 g/dL (12.0-18.0); LYMPHOCYTES 11.6 % (24-44); MCH 28.6 (27-36); MCHC 33.2 g/dl (30-36); MONOCYTES 5.7 % (0-12); NEUTROPHILS 81.5 % (39-80); PLATELET COUNT 174 K/uL (140-440); RBC 4.79 M/ul (4.3-5.7)
[2024-09-23 07:04] LABS: ANION GAP 10.7 (7-21); BUN/CREATININE RATIO 17.64 (6.0-28.6); CALCIUM 7.9 mg/dL (8.5-10.1); CREATININE, SERUM 0.51 mg/dL (0.55-1.02); POTASSIUM 3.7 mmol/L (3.5-5.1)
--- NOTE | 2024-09-23 07:30 | NUR ---
REPORT RECEIVED FROM LARS ALONSO. PT IS RESTING IN BED WITH EYES CLOSED, RESP EVEN AND UNLABORED, ON 2L/NC WITH SPO2 94%, HR 90'S SINUS RHYTHM.
--- NOTE | 2024-09-23 08:25 | NUR ---
IN TO DO ASSESSMENT AND BLOOD SUGAR. PT AWAKENS EASILY, DENIES NEEDS BUT DOES WANT TO GO BACK TO SLEEP.
[2024-09-23] MEDS ORDERED: AZITHROMYCIN 500 MG in SODIUM CHLORIDE 0.9% 250 ML IV SCH (09:00)
[2024-09-23] MEDS ORDERED: INSULIN GLARGINE-YFGN 100 UNIT/ML ML SUB-Q SCH (09:00)
--- NOTE | 2024-09-23 09:28 | NUR ---
OT AND ST IN TO SEE PT
--- NOTE | 2024-09-23 09:50 | NUR ---
PT OFF UNIT FOR MRI WITH UNDER SHERIFF.
--- NOTE | 2024-09-23 10:45 | NUR ---
PT BACK FROM MRI, SITTING UP IN BED FEEDING HERSELF BREAKFAST.
--- NOTE | 2024-09-23 11:49 | NUR ---
UR CLINICAL REVIEW: [facility] IN[facility] CRITERIA FOR [facility] IN[facility] 09/21/24 @ 1143 ORDER MATCHES REG CLINICALS SENT FOR AUTH REVIEW DISCHARGE PENDING FURTHER CASE MANAGEMENT EVAL 09/25/24
--- NOTE | 2024-09-23 12:23 | NUR ---
PT SITTING UP IN BED, FEEDING HERSELF LUNCH AND DOING WELL WITH IT.
--- NOTE | 2024-09-23 13:40 | NUR ---
CASE MANAGEMENT IN TO TALK WITH PT AND HER .
--- NOTE | 2024-09-23 14:00 | NUR ---
PATIENT AMY ALCALA YONATHAN KRISSY NUMBER. STRESSED THE IMPORTANCE OF CALLING HER TODAY TO START THE PROCESS OF LONGTERM MEDICAID.
--- NOTE | 2024-09-23 15:18 | NUR ---
PATIENT ALERT AND ORIENTED IN BED, SPOUSE AT BEDSIDE. PATIENT AND SPOUSE ARE CURRENTLY HOMELESS. PREVIOUSLY STAYED AT THE [facility] BUT ARE CURRENTLY ON THE BANNED INDEFINITELY LIST. SPOUSE STATES HE CARES FOR PATIENT BUT IT IS BECOMING TOO MUCH, ESPECIALLY WITH THEM BEING HOMELESS. SHE IS CONTINUALLY GETTING WEAKER, MORE INCONTINENT AND HARDER TO CARE FOR. PATIENT WAS ACCEPTED TO [facility] AT SOME POINT BUT SHE DECLINED TO GO. PATIENT HAS NO RESIDENTIAL MEDICAID. DISCUSSED IN DEPTH WITH PATIENT AND SPOUSE THAT PT/OT ARE RECOMMENDING A SNF. EXPLAINED WHAT SNF IS. PATIENT IS AGREEABLE TO SNF AT [facility] IF ACCEPTED. DISCUSSED WHAT THE PLAN WOULD BE, FOLLOWING SNF IT IS DIFFICULT TO PLACE HOMELESS PATIENTS IF THEY DO NOT HAVE A PLAN FOR WHEN THEY ARE DONE WITH SNF REHAB. DISCUSSED NEED TO APPLY FOR RESIDENTIAL MEDICAID AND PHONE NUMBER PROVIDED TO SPOUSE. INSTRUCTED TO CALL YONATHAN REY TODAY TO DISCUSS RESIDENTIAL MEDICAID SINCE IT TAKES 35-45 DAYS TO QUALIFY. STATES HE WILL CALL TODAY WHEN PHONE NUMBER PROVIDED. INFORMED THEM WHAT SUSTAINABILITY SPECIALIST MEDICAID BENEFITS INCLUDE. DISCUSSED THE IMPORTANCE OF STARTING THE PROCESS TODAY SO PATIENT WILL HAVE SOMEWHERE TO GO WHEN SHE HAS COMPLETED THERAPIES SO SHE DOES NOT END UP BACK ON THE STREET PUTTING BURDEN ON HER SPOUSE TO CARE FOR HER. BOTH ARE AGREEABLE TO SUSTAINABILITY SPECIALIST MEDICAID AND POTENTIAL PLACEMENT INTO ASSISTED LIVING OR SUSTAINABILITY SPECIALIST CARE IF THE CONTINUED SUPPORT IS NEEDED POST SNF PLACEMENT. PATIENT HAS A WALKER, CANE AND MOTORIZED WHEELCHAIR. PATIENT AND SPOUSE DO NOT DRIVE, THEY HAVE DIFFICULTY PAYING FOR FOOD AND HAVE NO UTILITIES DUE TO HOMELESSNESS. SPOUSE STATES PREVIOUSLY THEY HAVE BEEN IN CONTACT WITH [employer]. PREVIOUSLY LIVED IN LOW INCOME HOUSING BUT WERE EVICTED. STATES HE IS PLANNING TO MAKE MULTIPLE PHONE CALLS FOR HOUSING OPTIONS. AGAIN, STRESSED IMPORTANCE OF STARTING THE PROCESS FOR SUSTAINABILITY SPECIALIST MEDICAID. DID CALL AND SPEAK WITH YONATHAN REY AT [facility], PATIENT CURRENTLY HAS NO SUSTAINABILITY SPECIALIST BENEFITS.
--- NOTE | 2024-09-23 15:55 | NUR ---
INTO SEE PATIENT. DON ATTEMPTED TO [employer] OF THE DAY AT [facility]. LEFT VOICEMAIL.
--- NOTE | 2024-09-23 16:34 | NUR ---
TELEPHONE CALL FROM AIR TOOL OPERATOR REGARDING THIS PATIENT NEEDING A WOUND CONSULT. PATIENT IS SITTING IN THE RECLINER. GAVIN MEYER, NEGRA CHOW RN AND MYSELF REPOSITION PATIENT IN THE RECLINER ON HER RIGHT SIDE. PATIENT REPORTS PAIN AT THE WOUND SITE. THERE IS MACERATION TISSUE NOTED TO THE NAV WOUND SKIN FROM 7:00-10:00. GAVIN MEYER REPORTS PATIENT HAD A FOAM DRESSING IN PLACE OVER THIS WOUND SITE, BUT IT BECAME SATURATED WITH STOOL AND IS CURRENTLY OPEN TO AIR. WOUND IS CLEANED, MEDIHONEY APPLIED TO WOUND BED AND COVERED WITH FOAM, ADHESIVE SACRAL DRESSING. BANDAID NOTED TO PATIENT'S LEFT, ANTERIOR LOWER LEG. BANDAID IS REMOVED AND REVEALS AN IRREGULARLY SHAPED WOUND WITH 90% YELLOW SLOUGH TISSUE AND 10% PALE PINK, SMOOTH TISSUE. MEDIHONEY IS APPLIED TO WOUND BED AND IS THEN COVERED WITH FOAM, ADHESIVE DRESSING. PATIENT TOLERATES THESE DRESSING APPLICATIONS WELL. REPORT IS GIVEN TO GAVIN MEYER. WOUND CARE ORDER IS ENTERED.
--- NOTE | 2024-09-23 18:11 | NUR ---
DR PRATHER UPDATED, ORDER GIVEN FOR PRN PAIN MEDS, SALINE LOCK AND INCREASE LANTUS DOSE TOMORROW. PT REMAINS SITTING UP IN CHAIR EATING HER DINNER, SON AT BEDSIDE.
[2024-09-23] MEDS ORDERED: OXYCODONE HCL 5 MG TAB PO PRN (18:15)
[2024-09-23] MEDS ORDERED: FUROSEMIDE 40 MG/4 ML VIAL IV ONE (19:30)
--- NOTE | 2024-09-23 19:45 | NUR ---
Report received from Blanca ALONSO. Patient resting in bed, states needing to use BSC, Beth RN in room to assist. Pt back to bed with 2PA, small BM in BSC. Warm blankets provided, no further needs at this time, RT in room for edil muñoz.
--- NOTE | 2024-09-23 21:00 | NUR ---
Scheduled medications administered and assessment complete. Patient resting in bed, A+O x4, slurred speech but understandable. Afebrile. HRR. Lungs coarse, patient has weak cough, spo2 92% on RA. Bowel tones active. Sweet draining cloudy yellow urine with sediment noted. Sacral dressing C/D/I. Skin grossly intact, CMS intact, pt denies N/T. Fresh water provided, room tidied, no further needs at this time. Bed alarm on. Call light in reach
--- NOTE | 2024-09-23 21:06 | NUR ---
IV to R FA pulled as dressing not intact and insertion site open to air. 20g cath tip intact. No redness or signs of infection at site. Pt tolerates well.
[2024-09-24] VITALS (10 sets, daily range): BP systolic 127–153; BP diastolic 62–104
--- NOTE | 2024-09-24 00:47 | NUR ---
Patient calling out to nurses station for help reaching her water on bedside table. This RN to bedside, assists patient and repositions in bed for comfort. patient has coarse lung sounds with loose, weak cough, pt states having increased SOB. RT called to room for PRN neb tx. Pt tolerates well and states no needs. In view of nurses station, call light in reach.
--- NOTE | 2024-09-24 02:21 | NUR ---
Patient resting in bed with eyes closed, even and unlabored respirations on RA. VSS. No needs identified. Call light in reach.
--- NOTE | 2024-09-24 04:15 | NUR ---
Patient resting in bed with eyes closed, even and unlabored respirations. Sweet cath draining WNL. SPO2 WNL. VSS. Pt has no identified needs at this time, allowed to rest undisturbed.
[2024-09-24 05:21] LABS: BASOPHILS 0.7 % (0-2); EOSINOPHILS 0.5 % (0-6); HEMATOCRIT 39.9 % (35.0-50.0); HEMOGLOBIN 13.2 g/dL (12.0-18.0); LYMPHOCYTES 13.7 % (24-44); MCH 28.4 (27-36); MCV 85.9 fl (81-99); MONOCYTES 5.4 % (0-12); NEUTROPHILS 79.7 % (39-80); PLATELET COUNT 180 K/uL (140-440); RBC 4.65 M/ul (4.3-5.7)
[2024-09-24 05:29] LABS: ANION GAP 11.9 (7-21); BUN/CREATININE RATIO 13.04 (6.0-28.6); CALCIUM 7.8 mg/dL (8.5-10.1); CREATININE, SERUM 0.46 mg/dL (0.55-1.02); MAGNESIUM 1.6 mg/dL (1.8-2.4); POTASSIUM 2.9 mmol/L (3.5-5.1)
--- NOTE | 2024-09-24 06:21 | NUR ---
Sweet emptied of 1100, pt showing sx of polyuria, SL this shift and ~600ml PO intake. Pt resting in bed, resp even and unlabored on RA, VSS, pt appears comfortable with no grimacing, relaxed body positioning. No needs identified.
[2024-09-24] MEDS ORDERED: POTASSIUM CHLORIDE IV ONE (08:00)
[2024-09-24] MEDS ORDERED: POTASSIUM CHLORIDE 10 MEQ TABCR PO ONE (08:00)
[2024-09-24] MEDS ORDERED: LIDOCAINE HCL IV ONE (08:00)
[2024-09-24] MEDS ORDERED: MAGNESIUM SULFATE 2 GM/50 ML BAG IV ONE (08:00)
[2024-09-24] MEDS ORDERED: SODIUM CHLORIDE 0.9% IV ONE (08:00)
--- NOTE | 2024-09-24 08:22 | NUR ---
IN PATIENT'S ROOM FOR ASSESSMENT, VITALS AND BREAKFAST. PATIENT AWAKENS EASILY TO VOICE. PT IS ALERT, ORIENTED, AND PLEASANT. PT IS HARD TO UNDERSTAND WITH SOME GARBLED SOUNDING SPEECH. PATIENT NOT SURE IF SHE IS HUNGRY THIS MORNING. SP02 IS 91% ON ROOM AIR AND SOME WHEEZING HEARD. NEB TX GIVEN PER RT. JACKSON DRAINING CLEAR YELLOW URINE. IV STARTED. IV POTASSIUM AND PO POTASSIUM TO BE GIVEN.
[2024-09-24] MEDS ORDERED: INSULIN GLARGINE-YFGN 100 UNIT/ML ML SUB-Q SCH (09:00)
--- NOTE | 2024-09-24 09:05 | NUR ---
SPOKE WITH PRINCESS AT [facility]. THEY ARE UNABLE TO ACCEPT PATIENT DUE TO HISTORY WITH SPOUSE SELLING METH IN FACILITY WHILE HE WAS THERE A PATIENT.
--- NOTE | 2024-09-24 09:27 | NUR ---
CASE MANAGEMENT IN ROOM AND INFORMS PATIENT THAT THE [facility] IS NOT AN OPTION FOR HER AND HER TO RETURN TO AFTER DISCHARGE. PT VERY UPSET BY THIS NEW AND IS CRYING. PT ALSO INFORMED THAT [facility] IS NOT ACCEPTING HER AT THIS TIME. PT AGREEABLE TO GO OUT OF TOWN TO ANOTHER REHAB FACILITY. PT COMFORTED MUCH POSSIBLE. DENIES FURTHER NEEDS. WILL CONTINUE TO MONITOR.
--- NOTE | 2024-09-24 09:27 | NUR ---
PATIENT NOTIFIED OF [facility] DENIAL AND REASONING. STATES SHE IS WILLING TO GO TO FACILITY OUT OF TOWN IF NEEDED FOR SNF. DOES BECOME TEARFUL DURING DISCUSSION. STAFF STATES PATIENT HAS BEEN REQUESTING TO GO [facility]. NOTIFIED PATIENT THAT STATED THEY'VE BEEN BANNED FROM [facility] INDEFINITELY WELL. WILL SEND REFERRALS TO [facility], [facility] AND [facility].
--- NOTE | 2024-09-24 09:35 | NUR ---
SNF REFERRAL FAXED TO [facility], [facility], [facility].
[2024-09-24] MEDS ORDERED: MAGNESIUM HYDROXIDE/AL HYDROX 30 ML CUP PO PRN (11:00)
--- NOTE | 2024-09-24 11:32 | NUR ---
PATIENT C/O NAUSEA AND HEARTBURN AND HAS SMALL AMOUNT OF EMESIS INTO WASHCLOTH WHILE WORKING WITH OT. PATIENT GIVEN PRN ZOFRAN AND MAALOX. PT NOW RESTING. WILL CONTINUE TO MONITOR.
--- NOTE | 2024-09-24 12:58 | NUR ---
PATIENT UP IN CHAIR AT THIS TIME AND ATE ABOUT 20% OF HER LUNCH. PT'S HERE AT THIS TIME AND ONE OF HER DAUGHTERS WAS HERE PREVIOUSLY. IV POTASSIUM HAS ALMOST FINISHED. PT GIVEN PRN OXYCODONE FOR PAIN IN HER BUTTOCKS.
--- NOTE | 2024-09-24 13:28 | NUR ---
SPOKE WITH SPOUSE AND PATIENT. INFORMED THEM PATIENT DOES HAVE SENIOR CARE MEDICAID COVERAGE. INFORMED THEM SHE HAS NOT BEEN ACCEPTED TO A FACILITY YET FOR SNF. INFORMED [facility] DECLINED PATIENT. STATES HE WOULD LIKE HER TO STAY IN TOWN. PREVIOUSLY ACCEPTED TO [facility]. WILL SEND REFERRAL FOR ASSISTED LIVING STATUS SINCE IS RESISTANT TO PATIENT LEAVING TOWN.
--- NOTE | 2024-09-24 13:47 | NUR ---
SPOKE WITH DENY AT [facility], THEY HAVE PREVIOUSLY ACCEPTED PATIENT BUT WERE UNABLE TO COORDINATE ADMISSION DUE TO PATIENT AND SPOUSE NOT ANSWERING PHONE CALLS E[facility], TO GET HER ADMITTED. STATES SHE WILL REVIEW THE CHART THEY HAVE 1 FEMALE BED OPEN IN TUTTLE AT THE MOMENT.
--- NOTE | 2024-09-24 15:10 | NUR ---
REPORT FROM PRINCESS IN CCU. PATIENT NAV ARE CARE DONE, FRESH ATTENDS, JACKSON CATHETER IS INTACT AND DRAINING CLEAR YELLOW URINE. PATIENT IS ALERT AND ORIENTED. ALLEVYN TO COCCYX ARE REMOVED, REDDENED AREA OPEN TO AIR AND PATIENT POSITIONED WITH PILLOW UNDER RIGHT SIDE. PATIENT IS ON ROOM AIR,WITH LOOSE PRODUCTIVE COUGH. TOOK PATIENT'S MOTORIZED CHAIR HOME. PATIENT DENIES PAIN, ENDORSES HEARTBURN AND HEAD IS SLIGHTLY ELEVATED. NO OTHER NEEDS AT THIS TIME.
--- NOTE | 2024-09-24 15:18 | NUR ---
MAYGAN FROM [facility] IN TO TALK TO PATIENT.
--- NOTE | 2024-09-24 15:23 | NUR ---
SPOKE WITH SPOUSE, AMY. PATIENT HAS BEEN ACCEPTED TO [facility] FOR SNF CARE, DR. PRATHER BELIEVES SHE CAN DISCHARGE TOMORROW. SPOUSE STATES HE WANTS HER TO STAY IN TOWN, HE IS ON HIS WAY TO FILL OUT PAPERWORK FOR HOUSING. SPOKE WITH PATIENT. SHE STATES SHE NO LONGER WANTS TO GO TO A FACILITY, SHE WANTS TO GO "HOME." REMINDED PATIENT THEY HAVE NO HOUSING AT THE TIME, DON IS JUST COMPLETING PAPERWORK TODAY. STATES WHEN SHE IS DISCHARGED TOMORROW, SHE WILL GO TO "FRIEND'S HOUSE." ASKED IF SHE IS GOING TO CONTINUE PT/OT. STATES SHE WILL CONTINUE OUTPATIENT PT/OT. EDUCATED ON IMPORTANCE OF SNF WITH RECOMMENDATION BY JOSÉ MIGUEL FOR HER SAFETY. STATES SHE WILL BE FINE. SHE DOES NOT WANT TO GO TO ANY FACILITY. DR. PRATHER NOTIFIED. TREY AT [facility] NOTIFIED PATIENT IS NOW STATING SHE WON'T GO AND SPOKE WITH DENY AT [facility] AND INFORMED HER PATIENT IS NOW SAYING SHE DOES NOT WANT TO GO.
--- NOTE | 2024-09-24 16:23 | NUR ---
PATIENT UP TO CHAIR WITH PHYSICAL THERAPY, PIVOT TRANSFER, PHYSICAL THERAPY RECOMMENDED 2 PERSON PIVOT.
--- NOTE | 2024-09-24 18:22 | NUR ---
PATIENT TRANSFERRED TO BED, PILLOW BETWEEN LEGS, NEW CATH SECUREMENT DEVICE PLACED. WARM BLANKET PROVIDED. BED ALARM IS ON.
--- NOTE | 2024-09-24 18:44 | NUR ---
PATIENT INCONTINENT OF URINE, BM. PATIENT CLEANED, NEW PUREWICK PLACED, SPIKA READJUSTED. PATIENT REPORTS NAUSEA, GIVEN 8MG OF ODT ZOFRAN. PATIENT HAS REQUESTED HOME MECLAZINE. PLAN TO CALL DOCTOR.
--- NOTE | 2024-09-24 19:02 | NUR ---
PATIENT IN BED AT THIS TIME. FACE PAINTER CHARTED VITALS AND I&O'S. CALL LIGHT WITHIN REACH, NO FURTHER NEEDS AT THIS TIME.
--- NOTE | 2024-09-24 19:10 | NUR ---
REPORT RECEIVED FROM KIRILL ALONSO. pt RESTING IN THE BED. BOARD UPDATED. pt DENIES ANY OTHER NEEDS AT THIS TIME. CALL LIGHT WITHIN REACH.
--- NOTE | 2024-09-24 20:45 | NUR ---
ASSESSMENT AND VITAL SIGNS DONE. pt RESTING IN THE BED. pt REPOSITIONED IN THE BED. JACKSON CARE DONE. JACKSON EMPTIED. BG CHECKED WITH A RESULTS OF 244. SS INSULIN ADMINISTERED. pt DENIES ANY OTHER NEEDS AT THIS TIME. CALL LIGHT WITHIN REACH.
--- NOTE | 2024-09-24 23:22 | NUR ---
pt RESTING IN THE BED WITH EYES CLOSED. RR EVEN AND UNLABORED. CALL LIGHT WITHIN REACH. NO NEEDS AT THIS TIME.
--- NOTE | 2024-09-25 02:12 | NUR ---
pt RESTING IN THE BED. pt RESPOSITIONED IN THE BED. RR EVEN AND UNLABORED. CALL LIGHT WITHIN REACH.
--- NOTE | 2024-09-25 04:07 | NUR ---
pt RESTING IN THE BED. pt REPOSITIONED WITH PILLOWS UNDER LEFT HIP. COCCYX CHECKED. BLANCHABLE REDNESS. pt C/O 04/20 PAIN. PRN PAIN MEDS ADMINISTERED. WATER REFRESHED. pt DENIES ANY OTHER NEEDS AT THIS TIME. CALL LIGHT WITHIN REACH.
[2024-09-25 05:07] VITALS: BP 139/78
[2024-09-25 05:56] LABS: BASOPHILS 0.2 % (0-2); EOSINOPHILS 0.5 % (0-6); HEMOGLOBIN 13.9 g/dL (12.0-18.0); LYMPHOCYTES 10.1 % (24-44); MCHC 32.5 g/dl (30-36); MCV 86.1 fl (81-99); MONOCYTES 8.7 % (0-12); NEUTROPHILS 80.5 % (39-80); PLATELET COUNT 219 K/uL (140-440); RBC 4.99 M/ul (4.3-5.7); RDW 14.1 (10.5-15.0)
[2024-09-25 06:09] LABS: ANION GAP 12.6 (7-21); BUN/CREATININE RATIO 13.33 (6.0-28.6); CALCIUM 8.3 mg/dL (8.5-10.1); CREATININE, SERUM 0.45 mg/dL (0.55-1.02); POTASSIUM 3.6 mmol/L (3.5-5.1)
--- NOTE | 2024-09-25 06:23 | NUR ---
pt RESTING IN THE BED. pt RESPOSITONED. JACKSON EMPTIED. pt DENIES ANY OTHER NEEDS AT THIS TIME. CALL LIGHT WITHIN REACH.
--- NOTE | 2024-09-25 07:25 | NUR ---
REPORT RECEIVED FROM GAVIN ADAIR.
--- NOTE | 2024-09-25 07:55 | NUR ---
ASSESSMENT COMPLETE. PT REFUSING BREAKFAST AT THIS TIME. PT IS DROWSY AND REQUESTING TO GO BACK TO SLEEP AND EAT LATER. PT ALERT AND ORIENTED X4. PT HAS SLURRED SPEECH AND SLIGHT R) FACIAL DROOP FROM PREVIOUS CVA. PT'S RLE SLIGHTLY WEAKER THAN LLE. PT'S CMS INTACT. CALL LIGHT WITHIN REACH AND NO REQUESTS AT THIS TIME.
[2024-09-25] MEDS ORDERED: INSULIN GLARGINE-YFGN 100 UNIT/ML ML SUB-Q SCH (09:00)
--- NOTE | 2024-09-25 09:10 | NUR ---
WOUND CARE TO COCCYX COMPLETED ORDERED. NEW ALEVEN APPLIED. PT'S ALEVEN TO LLE INTACT. PT REPOSITIONED TO EAT BREAKFAST. CALL LIGHT WITHIN REACH.
--- NOTE | 2024-09-25 09:40 | NUR ---
CALLED [facility] TO SCHEDULE FOLLOW-UP APPOINTMENT. APPOINTMENT SCHEDULED FOR 09/27/24 @ 1040. APPOINTMENT ADDED TO DC INSTRUCTIONS.
--- NOTE | 2024-09-25 09:44 | NUR ---
SPOKE WITH PATIENT. SHE IS PLANNING TO DC TO A FRIEND'S HOUSE TODAY WHEN DISCHARGED. INFORMED HER FOLLOW-UP APPOINTMENT WITH DR. MORALES WAS SCHEDULED FOR MONDAY AND IT WILL BE ON HER DISCHARGE PAPERS. VERBALIZES UNDERSTANDING. PLAN TO DC TODAY.
[2024-09-25 09:58] VITALS: BP 142/79
--- NOTE | 2024-09-25 10:30 | NUR ---
EDUCATION REGARDING IMPORTANCE OF CONTROLLING DIABETES AND REPOSITIONING EVERY 2 HR. PT GIVEN HANDOUTS REGARDING DIABETIC DIET ALSO GIVEN. PT HAS NO QUESTIONS AT THIS TIME. CALL LIGHT WITHIN REACH.
--- NOTE | 2024-09-25 11:03 | NUR ---
CALLED AND SPOKE WITH DON, SPOUSE. INFORMED HIM PATIENT IS REFUSING PLACEMENT AND SHE STATES THEY HAVE A FRIEND'S PLACE TO STAY. STATES HE DOESN'T KNOW WHERE THAT WOULD BE. INFORMED HIM BECAUSE SHE IS REFUSING PLACEMENT, NO ACCEPTING FACILITY AND SHE IS READY TO DISCHARGE FROM THE HOSPITAL. STATES HE IS ON HIS WAY UP TO FACILITY AT THIS TIME TO SEE PATIENT AND HE WILL TALK WITH HER AND CM WHEN HE IS HERE.
[2024-09-25] MEDS ORDERED: SULFAMETHOXAZO1 EAC1 PO (11:04)
[2024-09-25] MEDS ORDERED: ALOGLIPTIN25 MG PO (11:10)
[2024-09-25] MEDS ORDERED: METFORMIN HCL500 M1 PO (11:10)
--- NOTE | 2024-09-25 11:15 | NUR ---
Patient refused taking a shower before discharge. A bed bath was offered and also refused.
--- NOTE | 2024-09-25 12:01 | NUR ---
Blood sugar checked and reported to GAVIN Romero. Lunch tray set up and patient raised up in bed. entered the room. Patient repeatedly refused a shower or a bed bath.
--- NOTE | 2024-09-25 12:20 | NUR ---
PT'S IN ROOM. PT EMOTIONAL AND CRYING, OFFERING SUPPORT. PT EATING LUNCH. NO REQUESTS AT THIS TIME.
[2024-09-25 13:40] VITALS: BP 150/75
--- NOTE | 2024-09-25 13:42 | NUR ---
PT STATES SHE VOIDED IN HER BRIEF "TWICE". BRIEF CHANGED AND NAV CARE PERFORMED. PT REPOSITIONED. CALL LIGHT WITHIN REACH. NO REQUESTS AT THIS TIME.
[2024-09-25 13:43] VITALS: BP 150/75
--- NOTE | 2024-09-25 13:50 | NUR ---
Patient was [id number]. Brief changed, pericare performed. New rachel placed under patient. Repositioned on to left side.
--- NOTE | 2024-09-25 14:11 | NUR ---
CALLED SPOUSE, AFSHIN. NO ANSWER. MESSAGE LEFT WITH CALLBACK NUMBER AND NOTIFIED HIM, AGAIN, PATIENT IS BEING DISCHARGED. OFFER TO SET UP WHEELCHAIR VAN RIDE TO FRIEND'S HOUSE OR WARMING STATION. AFSHIN CALLED BACK. REQUESTS WHEELCHAIR VAN FOR TRANSPORT TO [facility] AROUND 3:30. WHEELCHAIR VAN SCHEDULED TO PICK PATIENT AND SPOUSE UP BETWEEN 3:30 AND 4 THIS AFTERNOON.
--- NOTE | 2024-09-25 14:35 | NUR ---
PT RESTING IN BED ON HER L) SIDE. PT HAS NO REQUESTS AT THIS TIME. CALL LIGHT WITHIN REACH.
[2024-09-25 15:14] VITALS: BP 157/80
== END 2024-09-25 15:20 | disposition home or self-care (01) | DRG 871 ==
LOC: ED 07:34 → CCU 11:47 → MS 11:47
PROVIDERS: Emergency Medicine; Student in an Organized Health Care Education/Training Program; ADMIT Family Medicine; ATTEND Family Medicine
DX: A41.51 Sepsis due to Escherichia coli [E. coli] (principal); E11.00 Type 2 diabetes mellitus with hyperosmolarity without nonketotic hyperglycemic-hyperosmolar coma (NKHHC); J18.9 Pneumonia, unspecified organism; E87.0 Hyperosmolality and hypernatremia; N17.9 Acute kidney failure, unspecified; N39.0 Urinary tract infection, site not specified; Z59.01 Sheltered homelessness; I25.10 Atherosclerotic heart disease of native coronary artery without angina pectoris; I10 Essential (primary) hypertension; G35 Multiple sclerosis; J44.9 Chronic obstructive pulmonary disease, unspecified; K21.9 Gastro-esophageal reflux disease without esophagitis; F17.210 Nicotine dependence, cigarettes, uncomplicated; F32.A Depression, unspecified; E83.42 Hypomagnesemia; E87.6 Hypokalemia; E11.622 Type 2 diabetes mellitus with other skin ulcer; L98.419 Non-pressure chronic ulcer of buttock with unspecified severity; E83.39 Other disorders of phosphorus metabolism; F12.10 Cannabis abuse, uncomplicated; Z95.5 Presence of coronary angioplasty implant and graft; Z88.7 Allergy status to serum and vaccine; Z79.2 Long term (current) use of antibiotics; Z79.51 Long term (current) use of inhaled steroids; Z79.899 Other long term (current) drug therapy; Z79.811 Long term (current) use of aromatase inhibitors; Z79.82 Long term (current) use of aspirin; Z79.84 Long term (current) use of oral hypoglycemic drugs; Z86.73 Personal history of transient ischemic attack (TIA), and cerebral infarction without residual deficits
CPT/HCPCS: 36415; 51702; 70450; 70496; 70498; 70551; 71045; 80048; 80053; 80061; 80076; 80307; 81001; 82010; 82803; 82947; 83036; 83605; 83735; 84100; 84484; 85025; 85610; 87040; 87077; 87088; 87186; 87502; 92526; 92610; 93005; 93010; 93306; 94640; 94660; 97110; 97162; 97166; 97530; 99285-25; A9270; G0480; J0456; J0696; J1815; J2405; J3475; J3480; J3490; J7030; J7042; J7050; J7060; J7070; J7121; Q9967; U0002

== ENCOUNTER 2024-10-07 11:28 | Inpatient (IN) | payer OTHER ==
[~2024-10-07] VITALS: Ht 172.7 cm; Wt 61.6 kg
[~2024-10-07 11:28] MED LIST changes: +ALOGLIPTIN25 MG PO; +FLUTICASONE-SA1 EAC4 INH; +METFORMIN HCL500 M1 PO; +SULFAMETHOXAZO1 EAC1 PO
[2024-10-07] MEDS ORDERED: IBLOOD GLUCOSE TEST STRIP 1 EA TEST XX ONE (11:45)
[2024-10-07 12:13] LABS: EOSINOPHILS 0.2 % (0-6); HEMOGLOBIN 13.6 g/dL (12.0-18.0); RDW 14.6 (10.5-15.0)
[2024-10-07 12:15] LABS: BASOPHILS 0.7 % (0-2); HEMATOCRIT 41.8 % (35.0-50.0); MCH 27.8 (27-36); MCHC 32.6 g/dl (30-36); MCV 85.3 fl (81-99); NEUTROPHILS 88.1 % (39-80); PLATELET COUNT 358 K/uL (140-440)
[2024-10-07 12:32] LABS: INR 1.71 (0.80-1.30)
[2024-10-07 12:33] LABS: ALBUMIN 2.2 g/dL (3.4-5.0); ALBUMIN/GLOBULIN RATIO 0.42 (1.1-2.4); BILIRUBIN, TOTAL 1.6 ng/dL (0.2-1.0); BUN/CREATININE RATIO 23.37 (6.0-28.6); CALCIUM 8.9 mg/dL (8.5-10.1); CREATININE, SERUM 0.77 mg/dL (0.55-1.02); PROTEIN, TOTAL 7.5 g/dL (6.4-8.2)
[2024-10-07 12:34] LABS: PARTIAL THROMBOPLASTIN TIME 35.9 Sec (22.9-41.3)
[2024-10-07 13:24] LABS: AMPHETAMINES, URINE NEGATIVE (NEGATIVE); BARBITURATES, URINE NEGATIVE (NEGATIVE); BENZODIAZEPINE, URINE NEGATIVE (NEGATIVE); BUPRENORPHINE, URINE NEGATIVE (NEGATIVE); CANNABINOID, URINE NEGATIVE (NEGATIVE); COCAINE, URINE NEGATIVE (NEGATIVE); ECSTASY, URINE NEGATIVE (NEGATIVE); FENTANYL, URINE NEGATIVE (NEGATIVE); METHADONE, URINE NEGATIVE (NEGATIVE); OPIATES, URINE NEGATIVE (NEGATIVE); OXYCODONE, URINE NEGATIVE (NEGATIVE); PHENCYCLIDINE, URINE NEGATIVE (NEGATIVE)
[2024-10-07 13:50] LABS: BILIRUBIN, URINE NEGATIVE (negative); BLOOD/HGB, URINE LARGE (Negative); KETONE, URINE SMALL (Negative); LEUK ESTERASE, URINE TRACE (negative); NITRITE, URINE POSITIVE (negative)
[2024-10-07 14:00] LABS: BACTERIA, URINE 1+ /hpf (negative); CRYSTALS, URINE NONE SEEN (0-1+); EPITHELIAL CELLS, URINE SQUAMOUS 2+ /lpf (0-1+); WHITE BLOOD CELLS, URINE 21-40 /HPF (0-5)
[2024-10-07 14:02] LABS: CASTS, URINE NONE SEEN \\lpf; COLLECTION TYPE, URINE CLEAN CATCH; REFLEX CULTURE, URINE No (No)
[2024-10-07 14:39] LABS: ACETAMINOPHEN 0 ug/mL (10-30)
[2024-10-07] MEDS ORDERED: CEFTRIAXONE/SODIUM CHLORIDE 2 GM/100 ML PIGGYBACK IV ONE (15:30)
[2024-10-07] MEDS ORDERED: DEXTROSE 5% 1,000 ML IV PRN (15:30)
[2024-10-07] MEDS ORDERED: ondansetron HCL 4 MG/2 ML VIAL IV PRN (15:30)
[2024-10-07] MEDS ORDERED: DEXTROSE 50% 50 ML SYR IV PRN ×2 (15:30)
[2024-10-07] MEDS ORDERED: SODIUM CHLORIDE 0.9% 1,000 ML IV PRN (15:30)
[2024-10-07] MEDS ORDERED: POLYETHYLENE GLYCOL 3350 1 PACKET PO PRN (15:30)
[2024-10-07] MEDS ORDERED: IBLOOD GLUCOSE TEST STRIP 1 EA TEST XX PRN (15:30)
[2024-10-07] MEDS ORDERED: GLUCAGON,HUMAN RECOMBINANT 1 MG/ML VIAL SUB-Q PRN (15:30)
[2024-10-07 15:52] LABS: TSH, 3RD GENERATION 0.288 uIU/mL (0.358-3.740)
--- NOTE | 2024-10-07 16:02 | NUR ---
MED REC COMPLETE
[2024-10-07 16:23] VITALS: BP 152/78
[2024-10-07] MEDS ORDERED: SODIUM PHOSPHATE 30 MMOL in DEXTROSE 5% 250 ML IV ONE (16:45)
[2024-10-07] MEDS ORDERED: POTASSIUM CHLORIDE 10 MEQ TABCR PO ONE (16:45)
--- NOTE | 2024-10-07 16:45 | NUR ---
COMPLETED ADMISSION. PATIENT IN BED WITH EYES CLOSED BUT WAKES AND ANSWERS QUESTIONS APPROPRIATELY. PATIENT DENIES PAIN. BED ALARM SET AND RAILS UP X 2. WARM BLANKET PROVIDED. CALL LIGHT GIVEN AND EDUCATION PROVIDED. 1X NS BOLUS HANGING TO GRAVITY AT THIS TIME.
--- NOTE | 2024-10-07 16:58 | NUR ---
DR. PRATHER IN ROOM FOR ASSESSMENT. PATIENT COOPERATIVE AND ANSWERS QUESTIONS APPROPRIATELY. PATIENT AGREEABLE WITH PLAN OF CARE.
[2024-10-07] MEDS ORDERED: IBLOOD GLUCOSE TEST STRIP 1 EA TEST VI SCH (17:00)
[2024-10-07] MEDS ORDERED: INSULIN LISPRO 100 UNIT/ML ML SUB-Q SCH (17:00)
[2024-10-07] MEDS ORDERED: POTASSIUM CHLORIDE 40 MEQ in DEXTROSE 5% 250 ML IV ONE (17:15)
[2024-10-07] MEDS ORDERED: LACTATED RINGER'S 1,000 ML IV SCH (17:15)
--- NOTE | 2024-10-07 17:49 | NUR ---
IV POTASSIUM INFUSING FOR 4 HOURS.
[2024-10-07 18:14] VITALS: BP 133/63
--- NOTE | 2024-10-07 18:16 | NUR ---
PATIENT SITTING UP IN BED AT THIS TIME. VITALS AND I&O'S DONE AND CHARTED. CALL LIGHT IN REACH. BED ALARM ON. NO FURTHER NEEDS AT THIS TIME.
--- NOTE | 2024-10-07 19:10 | NUR ---
REPORT RECEIVED FROM AKILAH ALONSO. BOARD UPDATED. pt DENIES ANY OTHER NEEDS AT THIS TIME. CALL LIGHT WITHIN REACH.
[2024-10-07] MEDS ORDERED: ALBUTEROL SULFATE 0.083% 3 ML VIAL INH SCH (20:00)
[2024-10-07] MEDS ORDERED: BUDESONIDE 0.5 MG/2 ML VIAL INH SCH (20:00)
[2024-10-07 20:35] VITALS: BP 121/69
[2024-10-07 20:38] VITALS: BP 121/69
[2024-10-07] MEDS ORDERED: FLUTICASONE PROPION INH SCH (21:00)
[2024-10-07] MEDS ORDERED: SALMETEROL INH SCH (21:00)
--- NOTE | 2024-10-07 21:10 | NUR ---
ASSESSMENT AND VITAL SIGNS DONE. BG CHECKED WITH A RESULTS OF 386. MD CALLED PER PROTOCOL. NEW ORDERS GIVEN AND VERIFIED WITH REPEAT BACK METHOD. SS INSULIN ADMINISTERED. pt DENIES ANY OTHER NEEDS AT THIS TIME.
[2024-10-08] VITALS (11 sets, daily range): BP systolic 131–158; BP diastolic 65–82
--- NOTE | 2024-10-08 | NUR ---
pt RESTING IN THE BED WITH EYE CLOSED. RR EVEN AND UNLABORED. IVF INFUSING PER ORDER. pt DENIES ANY OTHER NEEDS AT THIS TIME. CALL LIGHT WITHIN REACH.
--- NOTE | 2024-10-08 01:21 | NUR ---
pt RESTING IN THE BED WITH EYES CLOSED. RR EVEN AND UNLABORED. CALL LIGHT WITHIN REACH.
--- NOTE | 2024-10-08 02:43 | NUR ---
VITAL SIGNS AND ASSESSMENT DONE. pt BRIEF AND PUREWICK CHANGED. NO OTHER NEEDS AT THIS TIME. CALL LIGHT WITHIN REACH.
--- NOTE | 2024-10-08 04:07 | NUR ---
pt RESTING IN THE BED WITH EYES CLOSED. RR EVEN AND UNLABORED. CALL LIGHT WITHIN REACH.
--- NOTE | 2024-10-08 05:39 | NUR ---
VITAL SIGNS DONE. pt RESTING IN THE BED. PURE WICK IN PLACE. WATER REFRESHED. DIET HELENA GIVEN. pt DENIES ANY OTHER NEEDS AT THIS TIME. CALL LIGHT WITHIN REACH.
[2024-10-08 05:43] LABS: HEMATOCRIT 38.3 % (35.0-50.0); HEMOGLOBIN 12.7 g/dL (12.0-18.0); MCH 28.1 (27-36); MCHC 33.2 g/dl (30-36); MCV 84.6 fl (81-99); PLATELET COUNT 244 K/uL (140-440); RBC 4.53 M/ul (4.3-5.7); RDW 14.1 (10.5-15.0)
[2024-10-08 06:00] LABS: BANDS, MANUAL DIFF 1; LYMPHOCYTES, MANUAL DIFF 22; MONOCYTES, MANUAL DIFF 3; NEUTROPHILS, MANUAL DIFF 74
[2024-10-08 06:02] LABS: ALBUMIN 1.7 g/dL (3.4-5.0); ALBUMIN/GLOBULIN RATIO 0.41 (1.1-2.4); ANION GAP 10.5 (7-21); BILIRUBIN, TOTAL 1.3 ng/dL (0.2-1.0); BUN/CREATININE RATIO 16.98 (6.0-28.6); CALCIUM 8.1 mg/dL (8.5-10.1); CREATININE, SERUM 0.53 mg/dL (0.55-1.02); MAGNESIUM 1.4 mg/dL (1.8-2.4); PHOSPHORUS, INORGANIC 2.7 mg/dL (2.5-4.9); POTASSIUM 2.5 mmol/L (3.5-5.1); PROTEIN, TOTAL 5.8 g/dL (6.4-8.2)
--- NOTE | 2024-10-08 07:30 | NUR ---
REPORT RECEIVED FROM NIGHT RN - PT RESTING IN BED AWAKE GETTING NEB TX. SKIN ASSESSMENT COMPLETED WITH NIGHT RN, NOTED BREAKDOWN ON ANKLES BILATERALLY.
[2024-10-08] MEDS ORDERED: ASPIRIN 81 MG CHEW PO SCH (08:00)
[2024-10-08] MEDS ORDERED: POTASSIUM CHLORIDE 40 MEQ,LIDOCAINE HCL 1% 40 MG in DEXTROSE 5% 250 ML IV ONE (08:15)
--- NOTE | 2024-10-08 08:39 | NUR ---
PATIENT IN BED AT THIS TIME. BUGGYMAN CHARTED BLOODSUGAR AND DID HOURLY ROUNDS. CALL LIGHT WITHIN REACH, NO FURTHER NEEDS AT THIS TIME.
[2024-10-08] MEDS ORDERED: POTASSIUM CHLORIDE 10 MEQ TABCR PO ONE (09:00)
[2024-10-08] MEDS ORDERED: INSULIN GLARGINE-YFGN 100 UNIT/ML ML SUB-Q SCH (09:00)
[2024-10-08] MEDS ORDERED: ENOXAPARIN SODIUM 40 MG/0.4 ML SYR SUB-Q SCH (09:00)
[2024-10-08] MEDS ORDERED: MAGNESIUM SULFATE 2 GM/50 ML BAG IV ONE (09:00)
[2024-10-08] MEDS ORDERED: PANTOPRAZOLE SODIUM 40 MG TABEC PO SCH (09:00)
[2024-10-08] MEDS ORDERED: MICONAZOLE NITRATE 1 EA BTL TOP SCH (09:01)
[2024-10-08] MEDS ORDERED: CEFTRIAXONE/SODIUM CHLORIDE 2 GM/100 ML PIGGYBACK IV SCH (09:45)
--- NOTE | 2024-10-08 10:21 | NUR ---
PT NOT AVAILABLE FOR VISIT. PROVIDED PRAYER.
--- NOTE | 2024-10-08 10:51 | NUR ---
UR CLINICAL REVIEW: [facility] INPT CRITERIA FOR UTI ODS [facility] OBS 10/07/24 @ 1528 ODS [facility] CLINICAL SENT FOR AUTH REVIEW DISCHARGE PENDING FURTHER NEEDS EVALUATION 10/08/24
--- NOTE | 2024-10-08 11:09 | NUR ---
PATIENT IN BED AT THIS TIME. VALIDATION TECHNICIAN AND RN ASSISTED PATIENT IN SHOWER, PROVIDED NAV CARE, AND PROVIDED FRESH LINENS. CALL LIGHT WITHIN REACH, NO FURTHER NEEDS AT THIS TIME.
--- NOTE | 2024-10-08 11:10 | NUR ---
FULL BATH COMPLETE AFTER PT/OT SESSION AMBULATING TO SHOWER CHAIR. PT AMBULATES BACK TO BED USING FWW NEEDING 1 PERSON ASSIST AND FREQUENT CUING. EXTENSIVE NAV CARE COMPLETE DEBRIEDING BUILD UP OF DISCHARGE FROM SKIN. LABIA AND CLITORIS NOTED TO BE VERY SWOLLEN AND PAINFUL BUT NO EXCORIATIONS OR BREAKDOWN OF SKIN NOTED. NYSTATIN POWDER WAS APPLIED AFTER AIR DRY. ATTENDS IN PLACE WITHOUT PURWIK R/T LABIA SWELLING. TEETH BRUSHED ENCOURAGING PT TO PERFORM MOST CARES HERSELF. UPDATED.
--- NOTE | 2024-10-08 11:20 | NUR ---
Attempted to speak with Shameka. She is pleasant, but is having issues with her memory today. She answers, "not sure" to all of my questions. She thinks they are staying at the [facility]. I am not sure if this is correct as pt was hospitalized around the 15 of this month and spouse had stated they were no longer allowed to go to the [facility] for 90 days. Pt is not sure what they are doing for food or where they are staying. I have not been able to to reach her spouse. I will check back in her room later. At pts last admission, pt was accepted to a SNF, but the spouse declined placement at discharge.
[2024-10-08] MEDS ORDERED: PHARMACY RENAL DOSE ADJUSTMENT 1 DOSE MISC PO SCH (12:00)
--- NOTE | 2024-10-08 12:45 | NUR ---
RN IN ROOM TO ADMINISTER SS INSULIN COVERAGE - PT RESTING IN BED WITH EYES CLOSED BUT WAKES EASILY. AT BEDSIDE.
--- NOTE | 2024-10-08 14:50 | NUR ---
RN ROUNDING ON PT - K+ INFUSION COMPLETE - PT RESTING IN BED WITH EYES CLOSED, RR EVEN AND UNLABORED. CALL LIGHT AND TABLE IN REACH.
--- NOTE | 2024-10-08 15:35 | NUR ---
PATIENT IN BED AT THIS TIME. ANIMAL NUTRITION TEACHER AND RN CHANGED PATIENTS BRIEF, PROVIDED FRESH BRIEF AND CHUX. CALL LIGHT WITHIN REACH, NO FURTHER NEEDS AT THIS TIME.
--- NOTE | 2024-10-08 17:15 | NUR ---
PATIENT IN BED AT THIS TIME. VIROLOGIST CHARTED BLOOD SUGAR, CHANGED PATIENTS BREIF, AND PROVIDED NAV CARE. CALL LIGHT WITHIN REACH, NO FURTHER NEEDS AT THIS TIME.
--- NOTE | 2024-10-08 17:20 | NUR ---
Stopped by pts room x 3 today and did not see the spouse. Will attempt tomorrow.
--- NOTE | 2024-10-08 17:35 | NUR ---
PT REPOSISTIONED UP INTO CHAIR POSISTION IN BED TO EAT DINNER.
--- NOTE | 2024-10-08 19:05 | NUR ---
REPORT RECEIVED FROM SALVADOR ALONSO. pt RESTING IN THE BED. pt DENIES ANY OTHER NEEDS AT THIS TIME. CALL LIGHT WITHIN REACH.
[2024-10-08] MEDS ORDERED: ALBUTEROL SULFATE 0.083% 3 ML VIAL INH PRN (19:45)
--- NOTE | 2024-10-08 20:40 | NUR ---
ASSESSMENT AND VITAL SIGNS DONE. BRIEF CHANGED. WATER REFRESHED. BG CHECKED WITH A RESULTS OF 282. SS INSULIN ADMINISTERED. DESENEX POWDER PLACED ON pt. pt DENIES ANY OTHER NEEDS AT THIS THIS TIME. CALL LIGHT WITHIN REACH.
--- NOTE | 2024-10-08 23:06 | NUR ---
pt RESTING IN THE BED WITH EYES CLOSED. RR EVEN AND UNLABORED. CALL LIGHT WITHIN REACH.
[2024-10-09] VITALS (7 sets, daily range): BP systolic 103–143; BP diastolic 63–90
--- NOTE | 2024-10-09 00:49 | NUR ---
pt BRIEF CHANGED. pt REPOSITIONED IN THE BED. pt DENIES ANY OTHER NEEDS AT THIS TIME. CALL LIGHT WITHIN REACH.
[2024-10-09] MEDS ORDERED: ACETAMINOPHEN 500 MG TAB PO ONE (02:15)
--- NOTE | 2024-10-09 02:19 | NUR ---
pt CRIED OUT. THIS RN WENT IN THE RM. pt WAS CRYING C/O 8/ PAIN IN HER LUQ PAIN. TENDER WITH PALPATION. SHARP PAIN. MD CALLED. NEW ORDERS GIVEN AND VERIFIED WITH REPEAT BACK METHOD.
--- NOTE | 2024-10-09 02:58 | NUR ---
brief changed. prn pain meds administered. PT c/o 04/20 pain. ice pack provided. PT denies any other needs at this time. call light within reach.
--- NOTE | 2024-10-09 03:20 | NUR ---
PATIENT CALLED COMPLAINING OF ABDOMINAL PAIN. SHUTTLE DRIVER PROVIDED PATIENT WITH HOT PACK. RN AWARE.
[2024-10-09] MEDS ORDERED: HYDROmorphone HCL 1 MG/ML SYR IV ONE (04:00)
--- NOTE | 2024-10-09 04:01 | NUR ---
pt MOANING, HEARD IN HALLWAY. CALL LIGHT ANSWERED. pt COMPLAINS OF 8/10 ABDOMINAL PAIN. RR 38, HR 130S. ABDOMEN GUARDED, TENDER THROUGHOUT ABDOMEN WITH PALPATION. DIFFICULTY WITH AUSCULTATION DUE TO MOANING, NO BOWEL TONES AUSCULTATED. PHONE CALL TO MD, UPDATED, TELEPHONE ORDER RECEIVED FOR PRN PAIN MEDICATION AND STAT CT SCAN WITHOUT CONTRAST. ORDERS REPEATED BACK TO VERIFY. ULTIMATE HOOPS REFEREE RN ON FLOOR ASSESSING pt AT THIS TIME.
--- NOTE | 2024-10-09 04:16 | NUR ---
IN TO GIVE pt IV PAIN MEDS. pt RESTING IN THE BED. pt C/O 04/20 PAIN. pt DENIES ANY OTHER NEEDS AT THIS TIME. CALL LIGHT WITHIN REACH.
--- NOTE | 2024-10-09 04:55 | NUR ---
THIS RN WENT DOWN THE MACIEL WITH IMAGING FOR ABD CT. pt IN THE STRETCHER EYES CLOSED. NO NEEDS AT THIS TIME. CALL LIGHT WITHIN REACH.
--- NOTE | 2024-10-09 05:36 | NUR ---
pt BACK TO THE FLOOR FROM CT. pt RR 20. pt EYES CLOSED. WHEN THIS RN ASKED pt IF SHE WAS OK. pt STATED SHE WAS OK. IVF INFUSING PER ORDER. NO OTHER NEEDS AT THIS TIME. CALL LIGHT WITHIN REACH.
[2024-10-09 05:37] LABS: HEMATOCRIT 38.5 % (35.0-50.0); HEMOGLOBIN 12.9 g/dL (12.0-18.0); MCHC 33.4 g/dl (30-36); MCV 83.9 fl (81-99); PLATELET COUNT 243 K/uL (140-440); RBC 4.59 M/ul (4.3-5.7); RDW 14.5 (10.5-15.0)
[2024-10-09 05:51] LABS: ALBUMIN 1.5 g/dL (3.4-5.0); ALBUMIN/GLOBULIN RATIO 0.39 (1.1-2.4); BILIRUBIN, TOTAL 1.8 ng/dL (0.2-1.0); BUN/CREATININE RATIO 16.41 (6.0-28.6); CALCIUM 7.6 mg/dL (8.5-10.1); CREATININE, SERUM 0.67 mg/dL (0.55-1.02); MAGNESIUM 1.3 mg/dL (1.8-2.4); PROTEIN, TOTAL 5.3 g/dL (6.4-8.2)
[2024-10-09 05:52] LABS: BANDS, MANUAL DIFF 4; LYMPHOCYTES, MANUAL DIFF 27; MONOCYTES, MANUAL DIFF 7; NEUTROPHILS, MANUAL DIFF 62
[2024-10-09] MEDS ORDERED: PANTOPRAZOLE SODIUM 40 MG/10 ML VIAL IV SCH (06:00)
[2024-10-09] MEDS ORDERED: PIPERACILLIN/TAZOBACTAM 3.375 GM in DEXTROSE 5% 100 ML IV SCH (06:00)
--- NOTE | 2024-10-09 06:19 | NUR ---
ORDERS PLACED FOR TRANSFER TO CCU PER TELEPHONE ORDER FROM DR. PRATHER. SECURITIES TRADER UPDATED. ATTEMPT TO CALL TO UPDATE ON pt TRANSFER TO UNIT, NO ANSWER, MAILBOX FULL.
--- NOTE | 2024-10-09 06:22 | NUR ---
pt TRANSFERED TO CCU, REPORT GIVEN TO NITA ALONSO. pt TRANSFERED VIA STRETCHER. NO OTHER NEEDS AT THIS TIME. CALL LIGHT WITHIN REACH.
[2024-10-09] MEDS ORDERED: PIPERACILLIN/TAZOBACTAM 3.375 GM VIAL ONE (06:37)
[2024-10-09] MEDS ORDERED: HYDROmorphone HCL 1 MG/ML SYR IV PRN (06:45)
--- NOTE | 2024-10-09 07:02 | NUR ---
PT ARRIVES TO CCU. ABD PAIN 04/20, REQUESTED PAIN MEDS FROM . ANAMIKA IV NOT PATENT, 22G IV PLACED IN LFA, PT TOLERATED WELL. SCHEDULED MEDS PROVIDED. VS COMPLETED. PRN PAIN MED PROVIDED. ABD PAINFUL, DISTENDED, HYPOACTIVE BOWEL TONES. REPORT RECEIVED FROM GIOVANY ALONSO.RED AREA NOTED ON LOWER ABD FROM HEAT PACK SHE RECIEVED BEFORE TRANSFER TO CCU. ALLEVYN COVERED WOUNDS ON BILATTERAL LEGS NOTED. EKG ST @ 123. CALL LIGHT IN REACH, BED ALARM ON.
[2024-10-09] MEDS ORDERED: MAGNESIUM SULFATE 2 GM/50 ML BAG IV ONE (07:15)
[2024-10-09] MEDS ORDERED: POTASSIUM CHLORIDE 40 MEQ,LIDOCAINE HCL 1% 40 MG in DEXTROSE 5% 250 ML IV ONE (07:15)
[2024-10-09] MEDS ORDERED: ALBUTEROL/IPRATROPIUM 3 ML NEB INH SCH (08:00)
[2024-10-09] MEDS ORDERED: INSULIN GLARGINE-YFGN 100 UNIT/ML ML SUB-Q SCH (09:00)
--- NOTE | 2024-10-09 09:12 | NUR ---
IN PATIENT'S ROOM FOR AM ASSESSMENT. PT IS DROWSY NOW AFTER HER DILAUDID WAS GIVEN FOR HER PAIN, BUT DOES OPEN EYES TO VOICE AND RESPONDS. PT IS AT HER BASELINE HARD TO UNDERSTAND FROM HER PREVIOUS STROKES. HR IN THE 100s. BP RIGHT NOW IS 99/65 (76). IV POTASSIUM AND IV MAG STARTED PER EMAR. CBG 292 AND SS INSULIN GIVEN. NO FAMILY IN ROOM. PT INCONTINENT OF URINE AND ATTENDS CHANGED. ATTENDS WERE SOAKED WITH DARK FOUL SMELLING URINE. DR. EATON IN TO SEE PATIENT AND CHECK ON HER. PT TO BE TRANSFERRED TO HIGHER LEVEL OF CARE ONOFRE FOR CT FINDINGS OF "SMALL VOLUME FREE AIR IN THE UPPER ABDOMEN AND MODERATE VOLUME FREE FLUID, CONCERNING FOR PERFORATED VISCUS, SUSPTECT PERFORATED GASTRIC ULCER." OTHER FINDINGS ALSO ON CT REPORT-SEE EHR. PT WHILE SLEEPING DIPPING TO 89%. 1 L NC ADDED TO PATIENT. LIVER ENZYMES HAVE BEEN ELEVATED SINCE ADMISSION. PT IS RECEIVING IV ZOSYN AND IV ROCEPHIN FOR ANTIBIOTICS. AFEBRILE THIS AM. SKIN IS WARM AND DRY.
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
--- NOTE | 2024-10-09 09:53 | NUR ---
[facility] IS ON THEIR WAY TO TRANSFER PATIENT TO [facility]. PT UNABLE TO SIGN CONSENT FORMS AND THIS RN AND ANOTHER RN SIGN FOR HER. SHE DOES GIVE VERBAL CONSENT TO TRANSFER AND AGREES WITH PLAN. UNABLE TO GET A HOLD OF PATIENT'S BY MULTIPLE ATTEMPTS. NUMBERS THAT HAVE BEEN TRIED ARE [phone] AND [phone].
--- NOTE | 2024-10-09 09:58 | NUR ---
MEDICATIONS PULLED FOR PT, PT REFUSING TO TAKE, STATES SHE CANT BREATH, DOESN'T WANT TO REMOVE TRILOGY, PRIMARY RN NOTIFIED. DR PRATHER TO BE NOTIFIED
--- NOTE | 2024-10-09 10:05 | NUR ---
PATIENT TRANSFERRING TO HIGHER LEVEL OF CARE. TRANSPORT HERE TO TAKE HER
--- NOTE | 2024-10-09 10:31 | NUR ---
REPORT GIVEN TO MICHELLE AT [facility] AT 1025. ALL QUESTIONS ANSWERED BEST POSSIBLE. ALL PERSONAL BELONGINGS TAKEN WITH PATIENT, WHICH INCLUDED [address] [facility] PERSONAL BAGS.
[2024-10-09] MEDS ORDERED: MINERAL OIL 133 ML BTL PR ONE (11:00)
[2024-10-09 15:57] LABS: IMMUNOGLOBULIN G 1315 mg/dL (768-1632)
[2024-10-09 16:09] LABS: HEPATITIS A ANTIBODY, IGM Negative (Negative); HEPATITIS B CORE ANTIBODY, IGM Negative (Negative); HEPATITIS B SURFACE ANTIGEN Negative (Negative); HEPATITIS C AB CIA INTERP High Pos (Negative); HEPATITIS C ANTIBODY CIA INDEX >11.00 IV (())
--- NOTE | 2024-10-09 21:14 | EKG ---
[facility] [address] [facility] [place] [address] Signed Sinus tachycardia with occasional premature ventricular complexes Nonspecific ST and T wave abnormality Abnormal ECG When compared with ECG of 21-SEP-2024 08:10, premature ventricular complexes are now present ST less depressed in Inferior leads ST less depressed in Anterolateral leads T wave inversion no longer evident in Inferior leads Nonspecific T wave abnormality has replaced inverted T waves in Lateral leads Confirmed by Brayan Prather DO ([id number]) on 10/09/2024 9:13:54 PM Electronically Signed By: BRAYAN PRATHER DO 10/09/242113 PATIENT NAME: DESTINEE DARBY Electrocardiogram DATE OF : 65 PHYSICIAN: BRAYAN PRATHER DO REPORT #: [id number] REPORT IS CONFIDENTIAL AND NOT TO BE RELEASED WITHOUT AUTHORIZATION
[2024-10-09 22:21] LABS: MITOCHONDRIAL (M2) AB,IGG 8.6 Units (0.0-24.9)
[2024-10-09 22:55] LABS: ANTI-NUCLEAR AB ANA,IGG ELISA None Detected (None Detected)
[2024-10-10 21:41] LABS: HCV QNT BY NAAT (IU/ML) Not Detected (()); HCV QNT BY NAAT (LOG IU/ML) Not Detected (()); HCV QNT BY NAAT INTERP Not Detected (Not Detected)
[2024-10-10 23:37] LABS: SMOOTH MUSCLE AB,IGG TITER <1:20 (<1:20)
== END 2024-10-09 10:18 | disposition short-term general hospital (02) | DRG 871 ==
LOC: ED 11:28 → MS 11:29 → ED 15:37 → CCU 10-09 06:22
PROVIDERS: Emergency Medicine; ADMIT Student in an Organized Health Care Education/Training Program; ATTEND Student in an Organized Health Care Education/Training Program
DX: A41.9 Sepsis, unspecified organism (principal); K25.1 Acute gastric ulcer with perforation; K72.00 Acute and subacute hepatic failure without coma; N12 Tubulo-interstitial nephritis, not specified as acute or chronic; E11.52 Type 2 diabetes mellitus with diabetic peripheral angiopathy with gangrene; R64 Cachexia; G93.49 Other encephalopathy; D73.5 Infarction of spleen; N30.80 Other cystitis without hematuria; R65.20 Severe sepsis without septic shock; E83.39 Other disorders of phosphorus metabolism; E87.6 Hypokalemia; I66.02 Occlusion and stenosis of left middle cerebral artery; I65.01 Occlusion and stenosis of right vertebral artery; I65.22 Occlusion and stenosis of left carotid artery; N28.1 Cyst of kidney, acquired; F32.9 Major depressive disorder, single episode, unspecified; K21.9 Gastro-esophageal reflux disease without esophagitis; J44.9 Chronic obstructive pulmonary disease, unspecified; I25.10 Atherosclerotic heart disease of native coronary artery without angina pectoris; F17.200 Nicotine dependence, unspecified, uncomplicated; I10 Essential (primary) hypertension; G35 Multiple sclerosis; Z86.73 Personal history of transient ischemic attack (TIA), and cerebral infarction without residual deficits; Z95.5 Presence of coronary angioplasty implant and graft; Z79.84 Long term (current) use of oral hypoglycemic drugs; Z79.51 Long term (current) use of inhaled steroids; Z79.82 Long term (current) use of aspirin; Z88.8 Allergy status to other drugs, medicaments and biological substances; Z88.7 Allergy status to serum and vaccine; Z68.20 Body mass index [BMI] 20.0-20.9, adult
CPT/HCPCS: 36415; 70450; 70496; 70498; 71045; 74178; 76705; 80053; 80074; 80307; 81001; 82140; 82553; 82784; 83605; 83615; 83690; 83735; 84100; 84439; 84443; 84484; 85025; 85610; 85730; 86038; 86255; 87040; 87088; 87186; 93005; 93010; 94640; 94760; 97162; 97166; A9270; G0480; J0696; J1171; J1650; J1815; J2470; J2543; J3475; J3480; J3490; J7030; J7060; J7121; Q9967